=== PATIENT | male | born 1960 | race Two or more races ===

== ENCOUNTER → 2016-06-26 | Outpatient (CLI) | payer BC ==
[2016-06-26 09:21] LABS: BASOPHILS % 1.2 % (0.0-2.0); EOSINOPHILS % 1.1 % (0.0-5.0); HEMATOCRIT. 40.4 % (42.0-52.0); HEMOGLOBIN. 13.4 g/dL (14.0-18.0); LYMPHOCYTES % 13.6 % (20.0-50.0); MEAN CORPUSCULAR HEMOGLOBIN 27.2 pg (28.0-32.0); MEAN CORPUSCULAR HGB CONC 33.2 g/dL (31.0-37.0); MEAN PLATELET VOLUME 7.3 fl (7.4-10.4); MONOCYTES % 9.5 % (2.0-8.0); NEUTROPHILS % 74.6 % (40.0-76.0); PLATELET 290 x1000/uL (130-400); RED BLOOD CELL COUNT 4.92 mill/uL (4.7-6.1); RED CELL DISTRIBUTION WIDTH 13.9 % (11.6-14.6); WHITE BLOOD COUNT 12.2 x1000/uL (4.5-11.0)
[2016-06-26 09:44] LABS: ALANINE AMINOTRANSFERASE 11 IU/L (13-61); ALBUMIN 2.9 g/dL (3.4-5.0); ANION GAP 11; CALCIUM 8.4 mg/dL (8.5-10.1); CARBON DIOXIDE 26 mEq/L (21-32); CHLORIDE 105 mEq/L (98-107); HDL CHOLESTEROL 51 mg/dL (40-59); INDEX HEMOLYSI 1 (1-3); INDEX ICTERIC 1 (1-4); INDEX LIPEMIC 1 (1-3); LDL CHOLESTEROL 46 mg/dL (5-100); TRIGLYCERIDE 97 mg/dL (0-150); UREA NITROGEN BLOOD 10 mg/dL (7-21); eGFR > 60 mL/min (>60)
[2016-06-26 09:45] LABS: THYROID STIMULATING HORMONE 0.96 uIU/mL (0.36-3.74)
== END | disposition home or self-care (01) ==
LOC: LAB 08:57
PROVIDERS: ATTEND Internal Medicine
DX: Z00.00 Encounter for general adult medical examination without abnormal findings (principal); Z13.0 Encounter for screening for diseases of the blood and blood-forming organs and certain disorders involving the immune mechanism; Z13.220 Encounter for screening for lipoid disorders; Z13.29 Encounter for screening for other suspected endocrine disorder; E11.9 Type 2 diabetes mellitus without complications
CPT/HCPCS: 36415; 80053; 80061; 83036; 84443; 85025

== ENCOUNTER → 2016-07-07 | Outpatient (CLI) | payer BC | END | disposition home or self-care (01) | LOC: RAD 10:18 | PROVIDERS: ATTEND Podiatrist Foot & Ankle Surgery | DX: M86.8X7 Other osteomyelitis, ankle and foot (principal); M79.89 Other specified soft tissue disorders | CPT/HCPCS: 73630 ==

== ENCOUNTER → 2016-07-31 | Outpatient (CLI) | payer BC ==
[2016-07-31 08:18] LABS: BASOPHILS % 0.6 % (0.0-2.0); EOSINOPHILS % 2.4 % (0.0-5.0); HEMATOCRIT. 42.4 % (42.0-52.0); MEAN CORPUSCULAR HEMOGLOBIN 27.4 pg (28.0-32.0); MEAN CORPUSCULAR HGB CONC 33.1 g/dL (31.0-37.0); MEAN CORPUSCULAR VOLUME 82.7 fL (80.0-94.0); MONOCYTES % 11.9 % (2.0-8.0); NEUTROPHILS % 69.1 % (40.0-76.0); PLATELET 219 x1000/uL (130-400); RED BLOOD CELL COUNT 5.13 mill/uL (4.7-6.1); RED CELL DISTRIBUTION WIDTH 14.1 % (11.6-14.6); WHITE BLOOD COUNT 9.6 x1000/uL (4.5-11.0)
[2016-07-31 08:50] LABS: ALBUMIN 3.7 g/dL (3.4-5.0); BILIRUBIN DIRECT 0.1 mg/dL (0.0-0.2)
== END | disposition home or self-care (01) ==
LOC: LAB 08:01
PROVIDERS: ATTEND Podiatrist Foot & Ankle Surgery
DX: B35.1 Tinea unguium (principal); L60.3 Nail dystrophy
CPT/HCPCS: 36415; 80076; 85025

== ENCOUNTER → 2016-10-09 | Outpatient (CLI) | payer BC ==
[2016-10-09 08:52] LABS: BASOPHILS % 0.8 % (0.0-2.0); EOSINOPHILS % 6.2 % (0.0-5.0); HEMATOCRIT. 41.5 % (42.0-52.0); HEMOGLOBIN. 13.8 g/dL (14.0-18.0); LYMPHOCYTES % 21.1 % (20.0-50.0); MEAN CORPUSCULAR HEMOGLOBIN 27.2 pg (28.0-32.0); MEAN CORPUSCULAR VOLUME 81.5 fL (80.0-94.0); MEAN PLATELET VOLUME 7.7 fl (7.4-10.4); NEUTROPHILS % 60.9 % (40.0-76.0); PLATELET 188 x1000/uL (130-400); RED BLOOD CELL COUNT 5.09 mill/uL (4.7-6.1); RED CELL DISTRIBUTION WIDTH 14.3 % (11.6-14.6)
== END | disposition home or self-care (01) ==
LOC: LAB 08:26
PROVIDERS: ATTEND Podiatrist Foot & Ankle Surgery
DX: B35.1 Tinea unguium (principal); L60.3 Nail dystrophy
CPT/HCPCS: 36415; 80076; 85025

== ENCOUNTER → 2016-10-14 | Outpatient (CLI) | payer BC | END | disposition home or self-care (01) | LOC: PVL 10:03 | PROVIDERS: ATTEND Podiatrist Foot & Ankle Surgery | DX: E11.51 Type 2 diabetes mellitus with diabetic peripheral angiopathy without gangrene (principal) | CPT/HCPCS: 93923 ==

== ENCOUNTER 2016-11-08 08:51 | Emergency (ER) | payer BC ==
[~2016-11-08] VITALS: Ht 170.2 cm; Wt 174.0 kg
[2016-11-08 09:10] VITALS: BP 166/75
== END 2016-11-08 12:10 | disposition home or self-care (01) ==
LOC: ER 08:51
DX: H10.89 Other conjunctivitis (principal); H00.013 Hordeolum externum right eye, unspecified eyelid; E11.9 Type 2 diabetes mellitus without complications
CPT/HCPCS: 99283

== ENCOUNTER → 2017-01-23 | Outpatient (CLI) | payer BC ==
[2017-01-23 09:16] LABS: BASOPHILS % 1.2 % (0.0-2.0); EOSINOPHILS % 1.9 % (0.0-5.0); HEMATOCRIT. 40.4 % (42.0-52.0); HEMOGLOBIN. 13.7 g/dL (14.0-18.0); LYMPHOCYTES % 17.7 % (20.0-50.0); MEAN CORPUSCULAR HEMOGLOBIN 28.1 pg (28.0-32.0); MEAN CORPUSCULAR VOLUME 83.1 fL (80.0-94.0); MEAN PLATELET VOLUME 7.3 fl (7.4-10.4); MONOCYTES % 8.5 % (2.0-8.0); NEUTROPHILS % 70.7 % (40.0-76.0); PLATELET 242 x1000/uL (130-400); RED BLOOD CELL COUNT 4.86 mill/uL (4.7-6.1); RED CELL DISTRIBUTION WIDTH 14.1 % (11.6-14.6)
== END | disposition home or self-care (01) ==
LOC: LAB 08:49
PROVIDERS: ATTEND Podiatrist Foot & Ankle Surgery
DX: B35.1 Tinea unguium (principal)
CPT/HCPCS: 36415; 80076; 85025

== ENCOUNTER → 2017-03-02 | Outpatient (CLI) | payer BC ==
[2017-03-02 11:00] LABS: EOSINOPHILS % 3.3 % (0.0-5.0); HEMATOCRIT. 43.7 % (42.0-52.0); HEMOGLOBIN. 14.5 g/dL (14.0-18.0); LYMPHOCYTES % 17.1 % (20.0-50.0); MEAN CORPUSCULAR HEMOGLOBIN 27.6 pg (28.0-32.0); MEAN CORPUSCULAR VOLUME 83.4 fL (80.0-94.0); MEAN PLATELET VOLUME 7.4 fl (7.4-10.4); MONOCYTES % 9.5 % (2.0-8.0); NEUTROPHILS % 69.1 % (40.0-76.0); PLATELET 242 x1000/uL (130-400); RED BLOOD CELL COUNT 5.24 mill/uL (4.7-6.1); RED CELL DISTRIBUTION WIDTH 13.7 % (11.6-14.6)
== END | disposition home or self-care (01) ==
LOC: LAB 10:38
PROVIDERS: ATTEND Podiatrist Foot & Ankle Surgery
DX: B35.1 Tinea unguium (principal); L60.3 Nail dystrophy
CPT/HCPCS: 36415; 80076; 85025

== ENCOUNTER → 2018-04-06 | Outpatient (CLI) | payer BC ==
[2018-04-06 08:51] LABS: HEMATOCRIT. 45.2 % (42.0-52.0); HEMOGLOBIN. 14.8 g/dL (14.0-18.0); MEAN CORPUSCULAR HEMOGLOBIN 26.3 pg (28.0-32.0); MEAN CORPUSCULAR VOLUME 80.2 fL (80.0-94.0); MEAN PLATELET VOLUME 7.3 fl (7.4-10.4); PLATELET 212 x1000/uL (130-400); RED BLOOD CELL COUNT 5.63 mill/uL (4.7-6.1)
[2018-04-06 08:58] LABS: CHLORIDE 100 mEq/L (98-107)
[2018-04-06 09:05] LABS: LDL CHOLESTEROL 81 mg/dL (5-100)
[2018-04-06 09:07] LABS: HDL CHOLESTEROL 30 mg/dL (40-59); T4 FREE 1.62 ng/dL (0.76-1.46)
[2018-04-06 16:14] LABS: PLATELET ESTIMATE NORMAL
== END | disposition home or self-care (01) ==
LOC: LAB 08:18
PROVIDERS: ATTEND Internal Medicine
DX: Z13.220 Encounter for screening for lipoid disorders (principal); Z13.0 Encounter for screening for diseases of the blood and blood-forming organs and certain disorders involving the immune mechanism; E66.3 Overweight; E11.9 Type 2 diabetes mellitus without complications
CPT/HCPCS: 36415; 80061; 83036; 84439; 84443; 84481

== ENCOUNTER → 2019-03-14 | Outpatient (CLI) | payer BC ==
[2019-03-14 09:44] LABS: BASOPHILS % 0.9 % (0.0-2.0); EOSINOPHILS % 1.6 % (0.0-5.0); HEMATOCRIT. 42.5 % (42.0-52.0); HEMOGLOBIN. 14.3 g/dL (14.0-18.0); LYMPHOCYTES % 22.3 % (20.0-50.0); MEAN CORPUSCULAR HEMOGLOBIN 28.7 pg (28.0-32.0); MEAN CORPUSCULAR VOLUME 85.1 fL (80.0-94.0); MEAN PLATELET VOLUME 7.9 fl (7.4-10.4); MONOCYTES % 9.4 % (2.0-8.0); NEUTROPHILS % 65.8 % (40.0-76.0); PLATELET 178 x1000/uL (130-400); RED CELL DISTRIBUTION WIDTH 14.2 % (11.6-14.6)
[2019-03-14 09:59] LABS: CHLORIDE 104 mEq/L (98-107)
[2019-03-14 10:05] LABS: LDL CHOLESTEROL 59 mg/dL (5-100)
[2019-03-14 10:07] LABS: HDL CHOLESTEROL 44 mg/dL (40-59)
== END | disposition home or self-care (01) ==
LOC: LAB 09:03
PROVIDERS: ATTEND Internal Medicine
DX: Z13.220 Encounter for screening for lipoid disorders (principal); Z13.1 Encounter for screening for diabetes mellitus; Z13.0 Encounter for screening for diseases of the blood and blood-forming organs and certain disorders involving the immune mechanism; I10 Essential (primary) hypertension; E11.9 Type 2 diabetes mellitus without complications
CPT/HCPCS: 36415; 80053; 80061; 83036; 85025

== ENCOUNTER → 2019-05-10 | Outpatient (CLI) | payer BC | END | disposition home or self-care (01) | LOC: PVL 09:26 | PROVIDERS: ATTEND Internal Medicine | DX: I70.201 Unspecified atherosclerosis of native arteries of extremities, right leg (principal); I77.89 Other specified disorders of arteries and arterioles | CPT/HCPCS: 93923 ==

== ENCOUNTER → 2019-08-22 | Outpatient (CLI) | payer BC ==
[~2019-08-22] MED LIST: ACET12.53 PO; AMOX1TAB16 PO; ATOR20TA65 MT; CLOP75TA33 MT; GABA-529 PO; GLYB1TAB35 PO; HYDR-4001 PO; HYDR12.54 MT; SITA100T11 MT
== END | disposition home or self-care (01) ==
LOC: LAB 13:23
PROVIDERS: ATTEND Surgery Vascular Surgery
DX: Z01.818 Encounter for other preprocedural examination (principal); Z11.59 Encounter for screening for other viral diseases
CPT/HCPCS: U0003-CS

== ENCOUNTER 2019-08-23 08:37 | Inpatient (IN) | payer BC ==
[~2019-08-23] VITALS: Ht 170.2 cm; Wt 78.5 kg
[2019-08-23] VITALS (10 sets, daily range): BP systolic 103–159; BP diastolic 59–81
[2019-08-23 09:55] LABS: HEMOGLOBIN 13.4 g/dL (14.0-18.0); MEAN CORPUSCULAR HEMOGLOBIN 27.8 pg (28.0-32.0); MEAN CORPUSCULAR VOLUME 83.1 fL (80.0-94.0); PLATELET 227 x1000/uL (130-400); RED BLOOD CELL COUNT 4.81 mill/uL (4.7-6.1); RED CELL DISTRIBUTION WIDTH 14.5 % (11.6-14.6)
[2019-08-23] MEDS ORDERED: SITA100T11 MT (09:59)
[2019-08-23] MEDS ORDERED: AMOX1TAB16 PO (09:59)
[2019-08-23] MEDS ORDERED: GLYB1TAB35 PO (09:59)
[2019-08-23] MEDS ORDERED: ATOR20TA65 MT (09:59)
[2019-08-23] MEDS ORDERED: HYDR12.54 MT (09:59)
[2019-08-23] MEDS ORDERED: ACET12.53 PO (09:59)
[2019-08-23 10:02] LABS: CHLORIDE 104 mEq/L (98-107)
[2019-08-23 10:04] LABS: PARTIAL THROMBOPLASTIN TIME 27.1 sec (23.4-31.0); PROTHROMBIN TIME 10.7 sec (9.6-11.0)
[2019-08-23] MEDS ORDERED: FENTANYL CITRATE/PF 50MCG/ML 2ML VIAL ONE (10:13)
[2019-08-23] MEDS ORDERED: MIDAZOLAM HCL 2 MG/2 ML VIAL ONE (10:13)
[2019-08-23] MEDS ORDERED: LIDOCAINE HCL 1% 20ML VIAL (Pyxis) INJ ONE (10:14)
[2019-08-23] MEDS ORDERED: IODIXANOL 320MG/ML 100 ML BOTTLE IV ONE (10:14)
[2019-08-23] MEDS ORDERED: IOHEXOL-300 100 ML BOTTLE ONE (10:32)
[2019-08-23] MEDS ORDERED: HEPARIN SODIUM 1,000 UNIT/1ML VIAL IV ONE (13:06)
[2019-08-23] MEDS ORDERED: HYDROCODONE/ACETAMINOPHEN 5/325MG TABLET PO PRN (19:30)
[2019-08-23] MEDS ORDERED: DEXTROSE 50% WATER 50ML SYRINGE IV PRN (19:30)
[2019-08-23] MEDS: BLOOD SUGAR DIAGNOSTIC STRIP TEST SCH (20:31)
[2019-08-23] MEDS: INSULIN LISPRO 100 UNITS/ML SUBCUT SCH (20:47)
[2019-08-24 00:26] VITALS: BP 119/60
[2019-08-24 01:54] VITALS: BP 110/48
[2019-08-24 03:53] VITALS: BP 120/63
[2019-08-24] MEDS: BLOOD SUGAR DIAGNOSTIC STRIP TEST SCH (05:43)
[2019-08-24 05:54] VITALS: BP 135/64
[2019-08-24] MEDS: INSULIN LISPRO 100 UNITS/ML SUBCUT SCH (07:20)
[2019-08-24 08:00] VITALS: BP 135/47
[2019-08-24 09:36] VITALS: BP 135/95
== END 2019-08-24 10:47 | disposition home or self-care (01) | DRG 271 ==
LOC: CCL 08:37 → 3WST 08:38
PROVIDERS: ADMIT Surgery Vascular Surgery; ATTEND Surgery Vascular Surgery
PROC: 047K3ZZ Dilation of Right Femoral Artery, Percutaneous Approach (ICD-10-PCS; principal; 2019-08-23)
PROC: 04CM3ZZ Extirpation of Matter from Right Popliteal Artery, Percutaneous Approach (ICD-10-PCS; 2019-08-23)
PROC: B41G1ZZ Fluoroscopy of Left Lower Extremity Arteries using Low Osmolar Contrast (ICD-10-PCS; 2019-08-23)
PROC: B41F1ZZ Fluoroscopy of Right Lower Extremity Arteries using Low Osmolar Contrast (ICD-10-PCS; 2019-08-23)
DX: E11.51 Type 2 diabetes mellitus with diabetic peripheral angiopathy without gangrene (principal); L97.419 Non-pressure chronic ulcer of right heel and midfoot with unspecified severity; E11.40 Type 2 diabetes mellitus with diabetic neuropathy, unspecified; I70.209 Unspecified atherosclerosis of native arteries of extremities, unspecified extremity; I10 Essential (primary) hypertension; I77.1 Stricture of artery; Z79.899 Other long term (current) drug therapy
CPT/HCPCS: 36415; 37225; 75710; 80048; 82962; 85027; 93005; C1725; C1760; C1769; C1885; C1887; C1894; J1644; J1815; J2250; J3010; J3490; Q9967

== ENCOUNTER → 2019-09-09 | Outpatient (CLI) | payer BC ==
[~2019-09-09] MED LIST changes: -CLOP75TA33 MT; -GABA-529 PO; -HYDR-4001 PO
== END | disposition home or self-care (01) ==
LOC: LAB 08:48
PROVIDERS: ATTEND Podiatrist Foot & Ankle Surgery
DX: Z01.818 Encounter for other preprocedural examination (principal); Z11.59 Encounter for screening for other viral diseases
CPT/HCPCS: 87635

== ENCOUNTER → 2019-09-13 | Outpatient (CLI) | payer BC | END | disposition home or self-care (01) | LOC: PVL 09:49 | PROVIDERS: ATTEND Podiatrist Foot & Ankle Surgery | DX: I70.201 Unspecified atherosclerosis of native arteries of extremities, right leg (principal); I96 Gangrene, not elsewhere classified; L97.419 Non-pressure chronic ulcer of right heel and midfoot with unspecified severity | CPT/HCPCS: 93923 ==

== ENCOUNTER → 2019-09-26 | Outpatient (CLI) | payer BC ==
[~2019-09-26] MED LIST changes: +GABA-529 PO; +HYDR-4001 PO
== END | disposition home or self-care (01) ==
LOC: LAB 14:13
PROVIDERS: ATTEND Surgery Vascular Surgery
DX: Z03.818 Encounter for observation for suspected exposure to other biological agents ruled out (principal)
CPT/HCPCS: C9803; U0003

== ENCOUNTER 2019-09-28 08:30 | Inpatient (IN) | payer BC ==
[~2019-09-28] VITALS: Ht 170.2 cm; Wt 80.7 kg
[2019-09-28] VITALS (8 sets, daily range): BP systolic 111–147; BP diastolic 50–74
[~2019-09-28 08:30] MED LIST changes: -GABA-529 PO; -HYDR-4001 PO
[2019-09-28 09:18] LABS: HEMATOCRIT 39.8 % (42.0-52.0); HEMOGLOBIN 13.5 g/dL (14.0-18.0); MEAN CORPUSCULAR HEMOGLOBIN 27.5 pg (28.0-32.0); MEAN CORPUSCULAR VOLUME 80.8 fL (80.0-94.0); PLATELET 286 x1000/uL (130-400); RED BLOOD CELL COUNT 4.92 mill/uL (4.7-6.1); RED CELL DISTRIBUTION WIDTH 13.7 % (11.6-14.6)
[2019-09-28 09:28] LABS: INR 1.1; PARTIAL THROMBOPLASTIN TIME 30.5 sec (23.4-31.0); PROTHROMBIN TIME 11.1 sec (9.6-11.0)
[2019-09-28] MEDS ORDERED: LIDOCAINE HCL 1% 20ML VIAL (Pyxis) INJ ONE (09:29)
[2019-09-28] MEDS ORDERED: IODIXANOL 320MG/ML 100 ML BOTTLE IV ONE ×2 (09:29→10:54)
[2019-09-28] MEDS ORDERED: FENTANYL CITRATE/PF 50MCG/ML 2ML VIAL ONE (09:29)
[2019-09-28] MEDS ORDERED: MIDAZOLAM HCL 2 MG/2 ML VIAL ONE ×2 (09:29→11:08)
[2019-09-28 09:38] LABS: CHLORIDE 106 mEq/L (98-107)
[2019-09-28] MEDS ORDERED: HYDR-4001 PO (09:43)
[2019-09-28] MEDS ORDERED: GABA-529 PO (09:44)
[2019-09-28] MEDS ORDERED: HEPARIN SODIUM 1,000 UNIT/1ML VIAL IV ONE (11:16)
[2019-09-28] MEDS ORDERED: CLOPIDOGREL 75MG TABLET PO NR (11:30)
[2019-09-28] MEDS ORDERED: HYDROCODONE/ACETAMINOPHEN 5/325MG TABLET PO PRN (12:00)
[2019-09-28] MEDS ORDERED: CLOPIDOGREL 75MG TABLET PO SCH (12:00)
[2019-09-28] MEDS ORDERED: DEXTROSE 50% WATER 50ML SYRINGE IV PRN (12:15)
[2019-09-28] MEDS ORDERED: HYDROCODONE/ACETAMINOPHEN 5/325MG TABLET PO SCH (12:15)
[2019-09-28] MEDS: INSULIN LISPRO 100 UNITS/ML SUBCUT SCH ×3 (12:20→21:24)
[2019-09-28] MEDS: BLOOD SUGAR DIAGNOSTIC STRIP TEST SCH ×2 (16:50→21:18)
[2019-09-28] MEDS ORDERED: ATORVASTATIN CALCIUM 20MG TABLET PO SCH (21:00)
[2019-09-29 01:53] VITALS: BP 130/61
[2019-09-29 03:53] VITALS: BP 120/78
[2019-09-29 05:53] VITALS: BP 121/56
[2019-09-29] MEDS: BLOOD SUGAR DIAGNOSTIC STRIP TEST SCH ×2 (06:16→12:19)
[2019-09-29] MEDS: INSULIN LISPRO 100 UNITS/ML SUBCUT SCH ×2 (07:20→12:19)
[2019-09-29 08:00] VITALS: BP 129/69
[2019-09-29] MEDS ORDERED: GABAPENTIN 100MG CAPSULE PO SCH (09:00)
[2019-09-29] MEDS ORDERED: CLOPIDOGREL 75MG TABLET PO SCH (09:00)
[2019-09-29 09:23] LABS: HEMATOCRIT 37.1 % (42.0-52.0); HEMOGLOBIN 12.5 g/dL (14.0-18.0); MEAN CORPUSCULAR HEMOGLOBIN 27.5 pg (28.0-32.0); MEAN CORPUSCULAR VOLUME 81.6 fL (80.0-94.0); PLATELET 231 x1000/uL (130-400); RED BLOOD CELL COUNT 4.55 mill/uL (4.7-6.1); RED CELL DISTRIBUTION WIDTH 13.7 % (11.6-14.6)
[2019-09-29 09:32] LABS: CHLORIDE 104 mEq/L (98-107)
[2019-09-29 10:00] VITALS: BP 117/59
[2019-09-29 14:00] VITALS: BP 131/66
== END 2019-09-29 14:09 | disposition home or self-care (01) | DRG 271 ==
LOC: CCL 08:30 → 3WST 08:31
PROVIDERS: ADMIT Internal Medicine; ATTEND Internal Medicine
PROC: 04CM3ZZ Extirpation of Matter from Right Popliteal Artery, Percutaneous Approach (ICD-10-PCS; principal; 2019-09-28)
PROC: 04CP3ZZ Extirpation of Matter from Right Anterior Tibial Artery, Percutaneous Approach (ICD-10-PCS; 2019-09-28)
PROC: 047M3ZZ Dilation of Right Popliteal Artery, Percutaneous Approach (ICD-10-PCS; 2019-09-28)
DX: E11.51 Type 2 diabetes mellitus with diabetic peripheral angiopathy without gangrene (principal); L97.419 Non-pressure chronic ulcer of right heel and midfoot with unspecified severity; E11.621 Type 2 diabetes mellitus with foot ulcer; F64.9 Gender identity disorder, unspecified; I10 Essential (primary) hypertension; L97.519 Non-pressure chronic ulcer of other part of right foot with unspecified severity; Z79.899 Other long term (current) drug therapy; E11.40 Type 2 diabetes mellitus with diabetic neuropathy, unspecified
CPT/HCPCS: 36415; 37225; 75710; 80048; 82962; 83036; 85027; 85347; 93005; C1725; C1760; C1769; C1885; C1887; C1893; C1894; J1644; J1815; J2250; J3010; J3490; Q9967

== ENCOUNTER 2019-11-01 06:09 | Inpatient (IN) | payer BC ==
[~2019-11-01] VITALS: Ht 170.2 cm; Wt 80.7 kg
[~2019-11-01 06:09] MED LIST changes: -ACET12.53 PO; +GABA-529 PO; +HYDR-4001 PO; -HYDR12.54 MT
[2019-11-01] MEDS ORDERED: ACETAMINOPHEN 650MG/20.3ML UDC PO ONE (07:30)
[2019-11-01] MEDS ORDERED: KETOROLAC 15MG/ML VIAL IV SCH (08:30)
[2019-11-01 08:46] LABS: BASOPHILS % 1.2 % (0.0-2.0); EOSINOPHILS % 4.6 % (0.0-5.0); HEMATOCRIT. 35.4 % (42.0-52.0); HEMOGLOBIN. 11.7 g/dL (14.0-18.0); LYMPHOCYTES % 18.7 % (20.0-50.0); MEAN CORPUSCULAR HEMOGLOBIN 26.1 pg (28.0-32.0); MEAN CORPUSCULAR VOLUME 79.2 fL (80.0-94.0); MEAN PLATELET VOLUME 6.9 fl (7.4-10.4); MONOCYTES % 9.9 % (2.0-8.0); NEUTROPHILS % 65.6 % (40.0-76.0); PLATELET 359 x1000/uL (130-400); RED BLOOD CELL COUNT 4.47 mill/uL (4.7-6.1); RED CELL DISTRIBUTION WIDTH 13.8 % (11.6-14.6)
[2019-11-01 08:48] LABS: CHLORIDE 105 mEq/L (98-107)
[2019-11-01] MEDS ORDERED: SODIUM CHLORIDE 0.9% 1,000 ML IV SCH (09:00)
[2019-11-01] MEDS ORDERED: CLONIDINE 0.1MG TABLET PO PRN (10:30)
[2019-11-01] MEDS ORDERED: ACETAMINOPHEN 325MG TABLET PO PRN (10:30)
[2019-11-01] MEDS ORDERED: ONDANSETRON HCL 4MG/2ML INJ IV PRN (10:30)
[2019-11-01] MEDS ORDERED: MORPHINE SULFATE 2 MG/ML CPJ (NOT FOR IM USE) IV PRN (10:30)
[2019-11-01] MEDS ORDERED: DIPHENHYDRAMINE 50MG/ML VIAL IV PRN (10:30)
[2019-11-01 10:42] LABS: PHOSPHORUS 2.8 mg/dL (2.5-4.9)
[2019-11-01] MEDS ORDERED: VANCOMYCIN 1500MG in DEXTROSE 5% WATER 250ML IV SCH (11:00)
[2019-11-01 15:00] VITALS: BP 138/53
[2019-11-01 16:00] VITALS: BP 138/53
[2019-11-01] MEDS ORDERED: CLOP75TA33 MT (19:00)
[2019-11-01] MEDS ORDERED: DEXTROSE 50% WATER 50ML SYRINGE IV PRN (19:30)
[2019-11-01 20:00] VITALS: BP 113/46
[2019-11-01] MEDS: BLOOD SUGAR DIAGNOSTIC STRIP TEST SCH (21:00)
[2019-11-01] MEDS: INSULIN LISPRO 100 UNITS/ML SUBCUT SCH (22:57)
[2019-11-01] MEDS: VANCOMYCIN 1500MG in DEXTROSE 5% WATER 250ML IV SCH (22:57)
[2019-11-02] VITALS: BP 141/45
[2019-11-02 04:23] VITALS: BP 113/45
[2019-11-02] MEDS: BLOOD SUGAR DIAGNOSTIC STRIP TEST SCH ×4 (05:54→20:40)
[2019-11-02] MEDS: INSULIN LISPRO 100 UNITS/ML SUBCUT SCH ×4 (06:18→20:40)
[2019-11-02 08:00] VITALS: BP 117/59
[2019-11-02 08:41] LABS: BASOPHILS % 1.4 % (0.0-2.0); EOSINOPHILS % 6.8 % (0.0-5.0); HEMATOCRIT. 34.6 % (42.0-52.0); HEMOGLOBIN. 11.2 g/dL (14.0-18.0); MEAN CORPUSCULAR HEMOGLOBIN 25.8 pg (28.0-32.0); MEAN CORPUSCULAR VOLUME 79.3 fL (80.0-94.0); MONOCYTES % 11.5 % (2.0-8.0); NEUTROPHILS % 53.3 % (40.0-76.0); PLATELET 343 x1000/uL (130-400); RED BLOOD CELL COUNT 4.36 mill/uL (4.7-6.1); RED CELL DISTRIBUTION WIDTH 14.1 % (11.6-14.6)
[2019-11-02 08:52] LABS: CHLORIDE 107 mEq/L (98-107)
[2019-11-02 08:59] LABS: LDL CHOLESTEROL 61 mg/dL (5-100)
[2019-11-02 09:00] LABS: HDL CHOLESTEROL 39 mg/dL (40-59)
[2019-11-02] MEDS: VANCOMYCIN 1500MG in DEXTROSE 5% WATER 250ML IV SCH ×3 (09:00→20:40)
[2019-11-02] MEDS ORDERED: LIDOCAINE HCL 1% 20ML VIAL (Pyxis) INJ ONE (10:29)
[2019-11-02] MEDS ORDERED: MIDAZOLAM HCL 2 MG/2 ML VIAL ONE (10:29)
[2019-11-02] MEDS ORDERED: FENTANYL CITRATE/PF 50MCG/ML 2ML VIAL ONE (10:29)
[2019-11-02] MEDS ORDERED: IODIXANOL 320MG/ML 100 ML BOTTLE IV ONE (10:30)
[2019-11-02 12:00] VITALS: BP 116/47
[2019-11-02] MEDS ORDERED: IOHEXOL-300 100 ML BOTTLE ONE ×2 (12:16→12:18)
[2019-11-02] MEDS: CLOPIDOGREL 75MG TABLET PO SCH (14:05)
[2019-11-02 16:00] VITALS: BP 111/48
[2019-11-02 20:00] VITALS: BP 115/49
[2019-11-03] VITALS: BP 122/64
[2019-11-03 04:00] VITALS: BP 122/59
[2019-11-03] MEDS: BLOOD SUGAR DIAGNOSTIC STRIP TEST SCH ×2 (06:10→11:39)
[2019-11-03] MEDS: INSULIN LISPRO 100 UNITS/ML SUBCUT SCH ×2 (06:30→11:42)
[2019-11-03 07:01] LABS: CHLORIDE 105 mEq/L (98-107)
[2019-11-03 07:30] LABS: BASOPHILS % 1.2 % (0.0-2.0); EOSINOPHILS % 5.6 % (0.0-5.0); HEMATOCRIT. 33.9 % (42.0-52.0); HEMOGLOBIN. 11.2 g/dL (14.0-18.0); LYMPHOCYTES % 23.7 % (20.0-50.0); MEAN CORPUSCULAR HEMOGLOBIN 25.9 pg (28.0-32.0); MEAN CORPUSCULAR VOLUME 78.7 fL (80.0-94.0); MEAN PLATELET VOLUME 7.1 fl (7.4-10.4); MONOCYTES % 14.1 % (2.0-8.0); NEUTROPHILS % 55.4 % (40.0-76.0); PLATELET 309 x1000/uL (130-400); RED BLOOD CELL COUNT 4.31 mill/uL (4.7-6.1); RED CELL DISTRIBUTION WIDTH 14.1 % (11.6-14.6)
[2019-11-03 08:00] VITALS: BP 123/66
[2019-11-03] MEDS: VANCOMYCIN 1500MG in DEXTROSE 5% WATER 250ML IV SCH (09:25)
[2019-11-03] MEDS: CLOPIDOGREL 75MG TABLET PO SCH (09:25)
[2019-11-03 12:00] VITALS: BP 128/54
[2019-11-03 16:00] VITALS: BP 111/57
[2019-11-03 16:57] VITALS: BP 111/51
== END 2019-11-03 17:39 | disposition home or self-care (01) | DRG 253 ==
LOC: ER 06:09 → 5WST 10:12 → ENRESERV 13:25 → 5WST 15:18
PROVIDERS: ADMIT Internal Medicine; ATTEND Internal Medicine
PROC: 04HM3DZ Insertion of Intraluminal Device into Right Popliteal Artery, Percutaneous Approach (ICD-10-PCS; principal; 2019-11-02)
PROC: B41F1ZZ Fluoroscopy of Right Lower Extremity Arteries using Low Osmolar Contrast (ICD-10-PCS; 2019-11-02)
PROC: 047P3ZZ Dilation of Right Anterior Tibial Artery, Percutaneous Approach (ICD-10-PCS; 2019-11-02)
DX: E11.52 Type 2 diabetes mellitus with diabetic peripheral angiopathy with gangrene (principal); M86.8X7 Other osteomyelitis, ankle and foot; I70.261 Atherosclerosis of native arteries of extremities with gangrene, right leg; E11.69 Type 2 diabetes mellitus with other specified complication; D50.9 Iron deficiency anemia, unspecified; E78.5 Hyperlipidemia, unspecified; Z20.828 Contact with and (suspected) exposure to other viral communicable diseases; F64.9 Gender identity disorder, unspecified; Z79.2 Long term (current) use of antibiotics; Z79.899 Other long term (current) drug therapy
CPT/HCPCS: 36415; 73630; 80048; 80053; 80061; 80202; 82962; 83036; 83735; 84100; 84443; 85025; 85347; 87635; 96374; 97162; 97165; 99291; J1644; J1815; J1885; J2250; J3010; J3370; J3490; J7060; Q9967

== ENCOUNTER → 2019-12-14 | Outpatient (CLI) | payer BC ==
[~2019-12-14] MED LIST changes: +CLOP75TA33 MT
[2019-12-14 08:35] LABS: BASOPHILS % 0.7 % (0.0-2.0); EOSINOPHILS % 1.1 % (0.0-5.0); HEMATOCRIT. 40.3 % (42.0-52.0); HEMOGLOBIN. 13.3 g/dL (14.0-18.0); LYMPHOCYTES % 15.5 % (20.0-50.0); MEAN CORPUSCULAR HEMOGLOBIN 26.5 pg (28.0-32.0); MEAN CORPUSCULAR VOLUME 80.4 fL (80.0-94.0); NEUTROPHILS % 73.7 % (40.0-76.0); PLATELET 249 x1000/uL (130-400); RED CELL DISTRIBUTION WIDTH 17.7 % (11.6-14.6)
[2019-12-14 08:43] LABS: CLARITY URINE TURBID (CLEAR); COLOR URINE YELLOW (YELLOW); KETONES URINE TRACE (NEGATIVE); LEUKOCYTE ESTERASE URINE 3+ (NEGATIVE); NITRITE URINE POSITIVE (NEGATIVE); OCCULT BLOOD URINE TRACE (NEGATIVE); PROTEIN URINE NEGATIVE (NEGATIVE); UROBILINOGEN URINE 0.2 E.U./dL (0.2-1.0)
[2019-12-14 08:45] LABS: PARTIAL THROMBOPLASTIN TIME 26.8 sec (23.4-31.0); PROTHROMBIN TIME 10.5 sec (9.6-11.0)
[2019-12-14 08:50] LABS: CHLORIDE 105 mEq/L (98-107)
== END | disposition home or self-care (01) ==
LOC: LAB 08:08
PROVIDERS: ATTEND Internal Medicine
DX: Z01.812 Encounter for preprocedural laboratory examination (principal); N39.0 Urinary tract infection, site not specified; Z13.0 Encounter for screening for diseases of the blood and blood-forming organs and certain disorders involving the immune mechanism; Z13.1 Encounter for screening for diabetes mellitus
CPT/HCPCS: 36415; 80048; 81003; 83036; 85025; 87077; 87186

== ENCOUNTER → 2019-12-16 | Outpatient (CLI) | payer BC | END | disposition home or self-care (01) | LOC: LAB 08:51 | PROVIDERS: ATTEND Podiatrist Foot & Ankle Surgery | DX: Z01.812 Encounter for preprocedural laboratory examination (principal); Z20.828 Contact with and (suspected) exposure to other viral communicable diseases | CPT/HCPCS: C9803; U0003 ==

== ENCOUNTER 2020-01-09 12:31 | Inpatient (IN) | payer BC, MEDICAID ==
[~2020-01-09] VITALS: Ht 170.2 cm; Wt 95.7 kg
[2020-01-09] MEDS ORDERED: PIPERACILLIN/TAZ 3.375G PREMIX 50 ML IV ONE (13:00)
[2020-01-09] MEDS ORDERED: VANCOMYCIN 1 G PREMIX 200 ML IV ONE (13:00)
[2020-01-09 13:29] LABS: HEMOGLOBIN. 11.1 g/dL (14.0-18.0); MEAN CORPUSCULAR HEMOGLOBIN 26.2 pg (28.0-32.0); MEAN CORPUSCULAR VOLUME 80.1 fL (80.0-94.0); MEAN PLATELET VOLUME 7.5 fl (7.4-10.4); PLATELET 443 x1000/uL (130-400); RED BLOOD CELL COUNT 4.24 mill/uL (4.7-6.1); RED CELL DISTRIBUTION WIDTH 16.9 % (11.6-14.6)
[2020-01-09 13:36] LABS: CHLORIDE 97 mEq/L (98-107)
[2020-01-09 13:38] LABS: PROTHROMBIN TIME 10.9 sec (9.6-11.0)
[2020-01-09 14:04] LABS: PLATELET ESTIMATE INCREASED
[2020-01-09] MEDS ORDERED: ACETAMINOPHEN 325MG TABLET PO PRN (14:30)
[2020-01-09] MEDS ORDERED: DIPHENHYDRAMINE 50MG/ML VIAL IV PRN (14:30)
[2020-01-09] MEDS ORDERED: PIPERACILLIN/TAZ 3.375G PREMIX 50 ML IV SCH (14:30)
[2020-01-09] MEDS ORDERED: IPRATROPIUM/ALBUTEROL 0.5-3(2.5)MG/3ML NEB HHN PRN (14:30)
[2020-01-09] MEDS ORDERED: CLONIDINE 0.1MG TABLET PO PRN (14:30)
[2020-01-09] MEDS ORDERED: IOHEXOL-350 100 ML BOTTLE ONE (14:52)
[2020-01-09 16:30] VITALS: BP 149/80
[2020-01-09] MEDS ORDERED: POTASSIUM CHLORIDE 20MEQ/PACKET PO NR (17:30)
[2020-01-09] MEDS: MORPHINE SULFATE 2 MG/ML CPJ (NOT FOR IM USE) IV PRN (17:41)
[2020-01-09] MEDS ORDERED: PIPERACILLIN/TAZOBACTAM 3.375 G in DEXT 5% WATER 100 ML IV SCH (18:00)
[2020-01-09 18:26] LABS: PHOSPHORUS 2.8 mg/dL (2.5-4.9)
[2020-01-09] MEDS ORDERED: INFLUENZA VACCINE 05/PF 0.5 ML VIAL IM ONE (19:45)
[2020-01-09] MEDS ORDERED: PNEUMOCOCCAL 23-VAL P-SAC VAC 0.5 ML IM ONE (19:45)
[2020-01-09 20:00] VITALS: BP 120/53
[2020-01-09] MEDS ORDERED: VANCOMYCIN 1250MG in DEXTROSE 5% WATER 250ML IV SCH ×2 (20:00→22:00)
[2020-01-09] MEDS: ATORVASTATIN CALCIUM 40MG TABLET PO SCH (21:44)
[2020-01-09] MEDS: PIPERACILLIN/TAZOBACTAM 3.375 G in DEXT 5% WATER 100 ML IV SCH (21:44)
[2020-01-09] MEDS: HYDROCODONE/ACETAMINOPHEN 5/325MG TABLET PO PRN (22:37)
[2020-01-10] VITALS: BP 126/82
[2020-01-10] MEDS: PIPERACILLIN/TAZOBACTAM 3.375 G in DEXT 5% WATER 100 ML IV SCH ×4 (03:07→21:40)
[2020-01-10 04:00] VITALS: BP 120/64
[2020-01-10] MEDS: HYDROCODONE/ACETAMINOPHEN 5/325MG TABLET PO PRN ×3 (04:18→22:02)
[2020-01-10 06:00] LABS: BASOPHILS % 0.5 % (0.0-2.0); EOSINOPHILS % 1.2 % (0.0-5.0); HEMATOCRIT. 32.2 % (42.0-52.0); HEMOGLOBIN. 10.4 g/dL (14.0-18.0); LYMPHOCYTES % 8.7 % (20.0-50.0); MEAN CORPUSCULAR HEMOGLOBIN 25.8 pg (28.0-32.0); MEAN CORPUSCULAR VOLUME 79.6 fL (80.0-94.0); MEAN PLATELET VOLUME 7.5 fl (7.4-10.4); MONOCYTES % 8.6 % (2.0-8.0); PLATELET 438 x1000/uL (130-400); RED BLOOD CELL COUNT 4.04 mill/uL (4.7-6.1); RED CELL DISTRIBUTION WIDTH 16.8 % (11.6-14.6)
[2020-01-10 06:25] LABS: CHLORIDE 95 mEq/L (98-107)
[2020-01-10 06:29] LABS: HDL CHOLESTEROL 30 mg/dL (40-59); LDL CHOLESTEROL 69 mg/dL (5-100)
[2020-01-10] MEDS: INSULIN LISPRO 100 UNITS/ML SUBCUT SCH ×4 (07:15→22:10)
[2020-01-10] MEDS: BLOOD SUGAR DIAGNOSTIC STRIP TEST SCH ×4 (07:20→21:00)
[2020-01-10 08:00] VITALS: BP 129/70
[2020-01-10] MEDS: VANCOMYCIN 1 G PREMIX 200 ML IV SCH ×2 (11:47→18:55)
[2020-01-10 12:00] VITALS: BP 118/62
[2020-01-10] MEDS ORDERED: HEPARIN SODIUM 1,000 UNIT/1ML VIAL IV ONE (13:00)
[2020-01-10] MEDS ORDERED: MIDAZOLAM HCL 2 MG/2 ML VIAL ONE (13:33)
[2020-01-10] MEDS ORDERED: IODIXANOL 320MG/ML 100 ML BOTTLE IV ONE (13:34)
[2020-01-10] MEDS ORDERED: FENTANYL CITRATE/PF 50MCG/ML 2ML VIAL ONE (13:34)
[2020-01-10] MEDS ORDERED: LIDOCAINE HCL 1% 20ML VIAL (Pyxis) INJ ONE (13:34)
[2020-01-10 16:00] VITALS: BP 116/71
[2020-01-10 20:00] VITALS: BP 102/47
[2020-01-10] MEDS: ATORVASTATIN CALCIUM 40MG TABLET PO SCH (21:40)
[2020-01-10] MEDS ORDERED: INSULIN GLARGINE UD 100 UNITS/ML SYR SUBCUT SCH (22:00)
[2020-01-11] VITALS: BP 135/70
[2020-01-11] MEDS: VANCOMYCIN 1 G PREMIX 200 ML IV SCH ×2 (02:34→11:16)
[2020-01-11] MEDS: PIPERACILLIN/TAZOBACTAM 3.375 G in DEXT 5% WATER 100 ML IV SCH ×4 (02:34→20:12)
[2020-01-11 04:00] VITALS: BP 110/63
[2020-01-11] MEDS: INSULIN LISPRO 100 UNITS/ML SUBCUT SCH ×4 (06:56→21:19)
[2020-01-11] MEDS: BLOOD SUGAR DIAGNOSTIC STRIP TEST SCH ×4 (07:02→21:14)
[2020-01-11 07:28] LABS: BASOPHILS % 0.9 % (0.0-2.0); EOSINOPHILS % 0.6 % (0.0-5.0); HEMATOCRIT. 30.8 % (42.0-52.0); HEMOGLOBIN. 10.2 g/dL (14.0-18.0); LYMPHOCYTES % 7.6 % (20.0-50.0); MEAN CORPUSCULAR HEMOGLOBIN 26.1 pg (28.0-32.0); MEAN CORPUSCULAR VOLUME 78.7 fL (80.0-94.0); MEAN PLATELET VOLUME 7.5 fl (7.4-10.4); MONOCYTES % 7.7 % (2.0-8.0); NEUTROPHILS % 83.2 % (40.0-76.0); PLATELET 390 x1000/uL (130-400); RED BLOOD CELL COUNT 3.91 mill/uL (4.7-6.1); RED CELL DISTRIBUTION WIDTH 16.7 % (11.6-14.6)
[2020-01-11 07:35] LABS: CHLORIDE 95 mEq/L (98-107)
[2020-01-11 08:00] VITALS: BP 105/60
[2020-01-11] MEDS: HYDROCODONE/ACETAMINOPHEN 5/325MG TABLET PO PRN ×2 (09:17→21:20)
[2020-01-11] MEDS ORDERED: RIVAROXABAN 20 MG TABLET PO SCH (10:30)
[2020-01-11 12:00] VITALS: BP 122/62
[2020-01-11 16:00] VITALS: BP 110/54
[2020-01-11 20:00] VITALS: BP 113/56
[2020-01-11] MEDS: VANCOMYCIN 1500MG in DEXTROSE 5% WATER 250ML IV SCH (21:18)
[2020-01-11] MEDS: ATORVASTATIN CALCIUM 40MG TABLET PO SCH (21:19)
[2020-01-11] MEDS: INSULIN GLARGINE UD 100 UNITS/ML SYR SUBCUT SCH (22:07)
[2020-01-12] VITALS: BP 94/51
[2020-01-12] MEDS: MORPHINE SULFATE 2 MG/ML CPJ (NOT FOR IM USE) IV PRN ×2 (01:13→08:54)
[2020-01-12] MEDS: PIPERACILLIN/TAZOBACTAM 3.375 G in DEXT 5% WATER 100 ML IV SCH ×4 (02:15→20:35)
[2020-01-12 04:00] VITALS: BP 112/58
[2020-01-12] MEDS: BLOOD SUGAR DIAGNOSTIC STRIP TEST SCH ×4 (06:18→21:35)
[2020-01-12] MEDS: INSULIN LISPRO 100 UNITS/ML SUBCUT SCH ×4 (06:35→21:41)
[2020-01-12 08:00] VITALS: BP 102/62
[2020-01-12] MEDS: VANCOMYCIN 1500MG in DEXTROSE 5% WATER 250ML IV SCH ×2 (11:03→21:40)
[2020-01-12 12:00] VITALS: BP 101/59
[2020-01-12] MEDS ORDERED: LIDOCAINE HCL 1% 20ML VIAL (Pyxis) INJ ONE (13:41)
[2020-01-12] MEDS ORDERED: BUPIVACAINE HCL/PF 0.5% (5MG/ML) 10ML ONE (13:42)
[2020-01-12] MEDS ORDERED: BACITRACIN 50,000 UNITS/VIAL ONE (13:42)
[2020-01-12] MEDS ORDERED: MIDAZOLAM HCL 2 MG/2 ML VIAL ONE (16:07)
[2020-01-12] MEDS ORDERED: FENTANYL CITRATE/PF 50MCG/ML 2ML VIAL ONE (16:07)
[2020-01-12] MEDS ORDERED: DIPHENHYDRAMINE 50MG/ML VIAL ONE (16:07)
[2020-01-12] MEDS ORDERED: PROPOFOL 200MG/20ML VIAL IV ONE (16:07)
[2020-01-12 18:08] VITALS: BP 146/74
[2020-01-12 20:00] VITALS: BP 116/50
[2020-01-12] MEDS: ATORVASTATIN CALCIUM 40MG TABLET PO SCH (21:40)
[2020-01-12] MEDS: INSULIN GLARGINE UD 100 UNITS/ML SYR SUBCUT SCH (21:41)
[2020-01-13] VITALS: BP 116/54
[2020-01-13] MEDS: PIPERACILLIN/TAZOBACTAM 3.375 G in DEXT 5% WATER 100 ML IV SCH ×4 (01:56→20:22)
[2020-01-13] MEDS: MORPHINE SULFATE 2 MG/ML CPJ (NOT FOR IM USE) IV PRN (03:40)
[2020-01-13 04:00] VITALS: BP 105/47
[2020-01-13] MEDS: BLOOD SUGAR DIAGNOSTIC STRIP TEST SCH ×4 (06:25→20:24)
[2020-01-13] MEDS: INSULIN LISPRO 100 UNITS/ML SUBCUT SCH ×5 (06:30→20:23)
[2020-01-13 06:44] LABS: BASOPHILS % 0.6 % (0.0-2.0); EOSINOPHILS % 2.7 % (0.0-5.0); HEMATOCRIT. 29.6 % (42.0-52.0); HEMOGLOBIN. 9.8 g/dL (14.0-18.0); LYMPHOCYTES % 7.3 % (20.0-50.0); MEAN CORPUSCULAR HEMOGLOBIN 25.9 pg (28.0-32.0); MEAN CORPUSCULAR VOLUME 78.3 fL (80.0-94.0); MEAN PLATELET VOLUME 7.4 fl (7.4-10.4); MONOCYTES % 10.6 % (2.0-8.0); NEUTROPHILS % 78.8 % (40.0-76.0); PLATELET 380 x1000/uL (130-400); RED BLOOD CELL COUNT 3.78 mill/uL (4.7-6.1); RED CELL DISTRIBUTION WIDTH 16.7 % (11.6-14.6)
[2020-01-13 08:00] VITALS: BP 104/46
[2020-01-13] MEDS ORDERED: LIDOCAINE HCL 1% 20ML VIAL (Pyxis) INJ ONE (08:21)
[2020-01-13] MEDS ORDERED: BACITRACIN 15GM TUBE TOP ONE (08:21)
[2020-01-13] MEDS ORDERED: SKIN ADHESIVE 0.7 GM EA TOP ONE (08:21)
[2020-01-13] MEDS ORDERED: PAPAVERINE HCL 30 MG/ML 2ML IV ONE (08:21)
[2020-01-13] MEDS ORDERED: HEPARIN SODIUM 1,000 UNIT/1ML VIAL IV ONE (08:22)
[2020-01-13] MEDS ORDERED: BUPIVACAINE HCL/PF 0.5% (5MG/ML) 10ML ONE (08:22)
[2020-01-13] MEDS ORDERED: THROMBIN (BOVINE) 5000 UNITS/VIAL TOP ONE (08:22)
[2020-01-13] MEDS ORDERED: BACITRACIN 50,000 UNITS/VIAL ONE (08:22)
[2020-01-13] MEDS ORDERED: MEPERIDINE HCL/PF 25MG/ML CPJ IV PRN (09:30)
[2020-01-13] MEDS ORDERED: ONDANSETRON HCL 4MG/2ML INJ IV PRN (09:30)
[2020-01-13] MEDS ORDERED: HYDROMORPHONE HCL/PF 2MG/ML CPJ IV PRN (09:30)
[2020-01-13] MEDS ORDERED: LABETALOL 5MG/ML SYR 20 MG/4 ML SYRINGE IV PRN (09:30)
[2020-01-13 14:15] VITALS: BP 111/65
[2020-01-13] MEDS: MORPHINE SULFATE 4 MG/ML CPJ (NOT FOR IM USE) IV PRN ×2 (15:43→21:13)
[2020-01-13 16:00] VITALS: BP 102/56
[2020-01-13] MEDS ORDERED: INSULIN LISPRO 100 UNITS/ML SUBCUT NR (17:00)
[2020-01-13 20:00] VITALS: BP 118/57
[2020-01-13] MEDS: ATORVASTATIN CALCIUM 40MG TABLET PO SCH (20:22)
[2020-01-13] MEDS: INSULIN GLARGINE UD 100 UNITS/ML SYR SUBCUT SCH (21:12)
[2020-01-13] MEDS ORDERED: INSULIN LISPRO 100 UNITS/ML SUBCUT SCH (22:00)
[2020-01-14] VITALS: BP 111/45
[2020-01-14] MEDS: PIPERACILLIN/TAZOBACTAM 3.375 G in DEXT 5% WATER 100 ML IV SCH ×4 (01:12→20:19)
[2020-01-14] MEDS: MORPHINE SULFATE 4 MG/ML CPJ (NOT FOR IM USE) IV PRN ×3 (02:21→20:20)
[2020-01-14 04:00] VITALS: BP 115/49
[2020-01-14] MEDS: BLOOD SUGAR DIAGNOSTIC STRIP TEST SCH ×4 (06:21→21:12)
[2020-01-14 06:24] LABS: HEMATOCRIT. 27.1 % (42.0-52.0); MEAN CORPUSCULAR HEMOGLOBIN 26.2 pg (28.0-32.0); MEAN CORPUSCULAR VOLUME 78.8 fL (80.0-94.0); MEAN PLATELET VOLUME 7.6 fl (7.4-10.4); PLATELET 366 x1000/uL (130-400); RED BLOOD CELL COUNT 3.44 mill/uL (4.7-6.1); RED CELL DISTRIBUTION WIDTH 16.5 % (11.6-14.6)
[2020-01-14] MEDS: INSULIN LISPRO 100 UNITS/ML SUBCUT SCH ×4 (06:26→21:13)
[2020-01-14 08:00] VITALS: BP 110/63
[2020-01-14 12:00] VITALS: BP 94/45
[2020-01-14] MEDS: SODIUM CHLORIDE 0.9% 1,000 ML IV SCH (14:13)
[2020-01-14 14:24] LABS: PLATELET ESTIMATE NORMAL
[2020-01-14] MEDS: INSULIN GLARGINE UD 100 UNITS/ML SYR SUBCUT SCH ×2 (15:00→21:12)
[2020-01-14 16:00] VITALS: BP 102/54
[2020-01-14 16:00] LABS: CLARITY URINE CLEAR (CLEAR); COLOR URINE YELLOW (YELLOW); KETONES URINE NEGATIVE (NEGATIVE); LEUKOCYTE ESTERASE URINE NEGATIVE (NEGATIVE); NITRITE URINE NEGATIVE (NEGATIVE); OCCULT BLOOD URINE NEGATIVE (NEGATIVE); PH URINE 5.5 (4.5-8.0); PROTEIN URINE TRACE (NEGATIVE); SPECIFIC GRAVITY URINE 1.014 (1.005-1.030); UROBILINOGEN URINE 0.2 E.U./dL (0.2-1.0)
[2020-01-14 17:22] LABS: PHOSPHORUS 2.3 mg/dL (2.5-4.9)
[2020-01-14] MEDS: RIVAROXABAN 20 MG TABLET PO SCH (17:47)
[2020-01-14 18:12] LABS: SODIUM URINE RANDOM 23 mEq/L
[2020-01-14 18:15] LABS: GLUCOSE URINE RANDOM 459 mg/dL
[2020-01-14 20:00] VITALS: BP 102/54
[2020-01-14] MEDS: ATORVASTATIN CALCIUM 40MG TABLET PO SCH (20:19)
[2020-01-15] VITALS: BP 99/57
[2020-01-15] MEDS: PIPERACILLIN/TAZOBACTAM 3.375 G in DEXT 5% WATER 100 ML IV SCH ×2 (01:24→08:11)
[2020-01-15] MEDS: MORPHINE SULFATE 4 MG/ML CPJ (NOT FOR IM USE) IV PRN ×4 (01:27→22:36)
[2020-01-15] MEDS: SODIUM CHLORIDE 0.9% 1,000 ML IV SCH ×2 (01:40→13:40)
[2020-01-15 04:00] VITALS: BP 96/54
[2020-01-15] MEDS: BLOOD SUGAR DIAGNOSTIC STRIP TEST SCH ×4 (06:19→21:05)
[2020-01-15 06:58] LABS: BASOPHILS % 0.8 % (0.0-2.0); EOSINOPHILS % 2.7 % (0.0-5.0); HEMATOCRIT. 26.2 % (42.0-52.0); HEMOGLOBIN. 8.6 g/dL (14.0-18.0); LYMPHOCYTES % 9.8 % (20.0-50.0); MEAN CORPUSCULAR HEMOGLOBIN 26.1 pg (28.0-32.0); MEAN CORPUSCULAR VOLUME 79.7 fL (80.0-94.0); MEAN PLATELET VOLUME 7.3 fl (7.4-10.4); MONOCYTES % 10.3 % (2.0-8.0); NEUTROPHILS % 76.4 % (40.0-76.0); PLATELET 409 x1000/uL (130-400); RED BLOOD CELL COUNT 3.29 mill/uL (4.7-6.1); RED CELL DISTRIBUTION WIDTH 16.7 % (11.6-14.6)
[2020-01-15 07:37] LABS: CHLORIDE 102 mEq/L (98-107)
[2020-01-15 08:00] VITALS: BP 106/68
[2020-01-15] MEDS: INSULIN LISPRO 100 UNITS/ML SUBCUT SCH ×4 (08:12→21:05)
[2020-01-15] MEDS: INSULIN GLARGINE UD 100 UNITS/ML SYR SUBCUT SCH ×2 (10:38→21:04)
[2020-01-15] MEDS ORDERED: VANCOMYCIN 750 MG PREMIX 150 ML IV SCH (11:00)
[2020-01-15 12:00] VITALS: BP 104/59
[2020-01-15] MEDS ORDERED: CEFTRIAXONE 2 G PREMIX 50 ML IV SCH (12:00)
[2020-01-15] MEDS: CEFTRIAXONE 2 G in DEXTROSE 5% WATER 50 ML IV SCH (13:39)
[2020-01-15] MEDS: DAPTOMYCIN 500 MG in SODIUM CHLORIDE 0.9% 50 ML IV SCH (13:48)
[2020-01-15 16:00] VITALS: BP 119/63
[2020-01-15] MEDS: RIVAROXABAN 20 MG TABLET PO SCH (17:08)
[2020-01-15 20:00] VITALS: BP 98/50
[2020-01-15] MEDS: ATORVASTATIN CALCIUM 40MG TABLET PO SCH (20:57)
[2020-01-16] VITALS: BP 92/47
[2020-01-16 04:00] VITALS: BP 93/45
[2020-01-16 04:10] LABS: PROTEIN C FUNCTIONAL 95 % (73-180)
[2020-01-16 06:35] LABS: BASOPHILS % 0.6 % (0.0-2.0); EOSINOPHILS % 2.5 % (0.0-5.0); HEMATOCRIT. 26.3 % (42.0-52.0); HEMOGLOBIN. 8.6 g/dL (14.0-18.0); LYMPHOCYTES % 9.7 % (20.0-50.0); MEAN CORPUSCULAR HEMOGLOBIN 26.2 pg (28.0-32.0); MEAN CORPUSCULAR VOLUME 80.1 fL (80.0-94.0); MEAN PLATELET VOLUME 7.3 fl (7.4-10.4); MONOCYTES % 10.4 % (2.0-8.0); NEUTROPHILS % 76.8 % (40.0-76.0); PLATELET 446 x1000/uL (130-400); RED BLOOD CELL COUNT 3.29 mill/uL (4.7-6.1); RED CELL DISTRIBUTION WIDTH 17.1 % (11.6-14.6)
[2020-01-16] MEDS: BLOOD SUGAR DIAGNOSTIC STRIP TEST SCH ×4 (06:41→21:00)
[2020-01-16] MEDS: SODIUM CHLORIDE 0.9% 1,000 ML IV SCH ×3 (07:10→20:38)
[2020-01-16] MEDS: INSULIN LISPRO 100 UNITS/ML SUBCUT SCH ×4 (07:10→22:11)
[2020-01-16 08:00] VITALS: BP 105/64
[2020-01-16 08:15] LABS: *CREATININE RANDOM URINE 54.3 mg/dL (Not Estab.); MICROALBUMIN RANDOM URINE 22.8 ug/mL (Not Estab.)
[2020-01-16] MEDS: MORPHINE SULFATE 4 MG/ML CPJ (NOT FOR IM USE) IV PRN ×2 (09:05→20:25)
[2020-01-16] MEDS: INSULIN GLARGINE UD 100 UNITS/ML SYR SUBCUT SCH ×2 (10:23→22:06)
[2020-01-16 12:00] VITALS: BP 102/49
[2020-01-16] MEDS: CEFTRIAXONE 2 G in DEXTROSE 5% WATER 50 ML IV SCH (12:45)
[2020-01-16] MEDS: DAPTOMYCIN 500 MG in SODIUM CHLORIDE 0.9% 50 ML IV SCH (13:52)
[2020-01-16 16:00] VITALS: BP 95/61
[2020-01-16] MEDS: RIVAROXABAN 20 MG TABLET PO SCH (17:40)
[2020-01-16 20:15] VITALS: BP 97/60
[2020-01-16] MEDS: ATORVASTATIN CALCIUM 40MG TABLET PO SCH (22:02)
[2020-01-17] VITALS: BP 87/55
[2020-01-17 04:00] VITALS: BP 95/58
[2020-01-17] MEDS: BLOOD SUGAR DIAGNOSTIC STRIP TEST SCH ×4 (06:29→21:37)
[2020-01-17] MEDS: INSULIN LISPRO 100 UNITS/ML SUBCUT SCH ×4 (06:29→22:00)
[2020-01-17 08:00] VITALS: BP 90/53
[2020-01-17] MEDS: INSULIN GLARGINE UD 100 UNITS/ML SYR SUBCUT SCH ×2 (10:42→22:01)
[2020-01-17 11:54] LABS: BASOPHILS % 0.8 % (0.0-2.0); EOSINOPHILS % 0.5 % (0.0-5.0); HEMATOCRIT. 25.3 % (42.0-52.0); HEMOGLOBIN. 8.2 g/dL (14.0-18.0); LYMPHOCYTES % 7.2 % (20.0-50.0); MEAN CORPUSCULAR HEMOGLOBIN 25.9 pg (28.0-32.0); MEAN CORPUSCULAR VOLUME 79.6 fL (80.0-94.0); MEAN PLATELET VOLUME 7.7 fl (7.4-10.4); MONOCYTES % 12.2 % (2.0-8.0); NEUTROPHILS % 79.3 % (40.0-76.0); PLATELET 451 x1000/uL (130-400); RED BLOOD CELL COUNT 3.17 mill/uL (4.7-6.1)
[2020-01-17] MEDS: CEFTRIAXONE 2 G in DEXTROSE 5% WATER 50 ML IV SCH (11:57)
[2020-01-17 12:00] VITALS: BP 90/58
[2020-01-17] MEDS: DAPTOMYCIN 500 MG in SODIUM CHLORIDE 0.9% 50 ML IV SCH (13:37)
[2020-01-17] MEDS: SODIUM CHLORIDE 0.9% 1,000 ML IV SCH (14:27)
[2020-01-17 16:00] VITALS: BP 90/58
[2020-01-17] MEDS: RIVAROXABAN 20 MG TABLET PO SCH (17:06)
[2020-01-17] MEDS: MORPHINE SULFATE 4 MG/ML CPJ (NOT FOR IM USE) IV PRN (17:07)
[2020-01-17 20:00] VITALS: BP 122/98
[2020-01-17] MEDS: ATORVASTATIN CALCIUM 40MG TABLET PO SCH (22:01)
[2020-01-18] VITALS: BP 126/64
[2020-01-18] MEDS: MORPHINE SULFATE 4 MG/ML CPJ (NOT FOR IM USE) IV PRN (00:10)
[2020-01-18] MEDS: SODIUM CHLORIDE 0.9% 1,000 ML IV SCH ×2 (03:30→14:53)
[2020-01-18 04:00] VITALS: BP 97/50
[2020-01-18] MEDS: INSULIN LISPRO 100 UNITS/ML SUBCUT SCH ×4 (06:19→20:57)
[2020-01-18] MEDS: BLOOD SUGAR DIAGNOSTIC STRIP TEST SCH ×4 (06:19→20:57)
[2020-01-18 06:42] LABS: CHLORIDE 101 mEq/L (98-107)
[2020-01-18 06:46] LABS: BASOPHILS % 0.9 % (0.0-2.0); HEMATOCRIT. 25.3 % (42.0-52.0); HEMOGLOBIN. 8.2 g/dL (14.0-18.0); LYMPHOCYTES % 9.6 % (20.0-50.0); MEAN CORPUSCULAR HEMOGLOBIN 25.9 pg (28.0-32.0); MEAN CORPUSCULAR VOLUME 80.3 fL (80.0-94.0); MEAN PLATELET VOLUME 7.5 fl (7.4-10.4); MONOCYTES % 12.7 % (2.0-8.0); NEUTROPHILS % 74.8 % (40.0-76.0); PLATELET 499 x1000/uL (130-400); RED BLOOD CELL COUNT 3.15 mill/uL (4.7-6.1); RED CELL DISTRIBUTION WIDTH 17.7 % (11.6-14.6)
[2020-01-18 06:50] LABS: PHOSPHORUS 3.5 mg/dL (2.5-4.9)
[2020-01-18 08:00] VITALS: BP 106/59
[2020-01-18] MEDS: INSULIN GLARGINE UD 100 UNITS/ML SYR SUBCUT SCH ×2 (11:46→20:57)
[2020-01-18 12:00] VITALS: BP 97/54
[2020-01-18] MEDS: DAPTOMYCIN 500 MG in SODIUM CHLORIDE 0.9% 50 ML IV SCH (13:35)
[2020-01-18] MEDS: CEFTRIAXONE 2 G in DEXTROSE 5% WATER 50 ML IV SCH (13:35)
[2020-01-18 16:00] VITALS: BP 98/62
[2020-01-18] MEDS: HYDROCODONE/ACETAMINOPHEN 5/325MG TABLET PO PRN ×2 (16:41→23:51)
[2020-01-18] MEDS: RIVAROXABAN 20 MG TABLET PO SCH (16:53)
[2020-01-18 20:00] VITALS: BP 101/57
[2020-01-19 04:00] VITALS: BP 98/44
[2020-01-19] MEDS: SODIUM CHLORIDE 0.9% 1,000 ML IV SCH ×2 (05:49→21:21)
[2020-01-19] MEDS: BLOOD SUGAR DIAGNOSTIC STRIP TEST SCH ×4 (06:03→21:17)
[2020-01-19] MEDS: INSULIN LISPRO 100 UNITS/ML SUBCUT SCH ×4 (06:04→21:00)
[2020-01-19 06:48] LABS: BASOPHILS % 0.9 % (0.0-2.0); EOSINOPHILS % 2.2 % (0.0-5.0); HEMATOCRIT. 25.2 % (42.0-52.0); HEMOGLOBIN. 8.2 g/dL (14.0-18.0); LYMPHOCYTES % 12.2 % (20.0-50.0); MEAN CORPUSCULAR HEMOGLOBIN 26.2 pg (28.0-32.0); MEAN PLATELET VOLUME 7.4 fl (7.4-10.4); MONOCYTES % 14.5 % (2.0-8.0); NEUTROPHILS % 70.2 % (40.0-76.0); PLATELET 478 x1000/uL (130-400); RED BLOOD CELL COUNT 3.15 mill/uL (4.7-6.1); RED CELL DISTRIBUTION WIDTH 17.5 % (11.6-14.6)
[2020-01-19 06:56] LABS: CHLORIDE 104 mEq/L (98-107)
[2020-01-19 07:11] LABS: CREATINE KINASE 66 IU/L (39-308)
[2020-01-19 08:00] VITALS: BP 112/63
[2020-01-19] MEDS: HYDROCODONE/ACETAMINOPHEN 5/325MG TABLET PO PRN (08:56)
[2020-01-19] MEDS: INSULIN GLARGINE UD 100 UNITS/ML SYR SUBCUT SCH ×2 (11:30→21:20)
[2020-01-19] MEDS: CEFTRIAXONE 2 G in DEXTROSE 5% WATER 50 ML IV SCH (13:10)
[2020-01-19] MEDS: DAPTOMYCIN 500 MG in SODIUM CHLORIDE 0.9% 50 ML IV SCH (14:22)
[2020-01-19 16:00] VITALS: BP 103/52
[2020-01-19] MEDS: RIVAROXABAN 20 MG TABLET PO SCH (17:15)
[2020-01-19] MEDS: MORPHINE SULFATE 2 MG/ML CPJ (NOT FOR IM USE) IV PRN (17:20)
[2020-01-19 20:00] VITALS: BP 111/75
[2020-01-20] VITALS (40 sets, daily range): BP systolic 92–119; BP diastolic 40–73
[2020-01-20 04:22] LABS: HEMATOCRIT. 26.3 % (42.0-52.0); HEMOGLOBIN. 8.5 g/dL (14.0-18.0); MEAN CORPUSCULAR HEMOGLOBIN 26.1 pg (28.0-32.0); MEAN CORPUSCULAR VOLUME 80.9 fL (80.0-94.0); MEAN PLATELET VOLUME 7.3 fl (7.4-10.4); PLATELET 489 x1000/uL (130-400); RED BLOOD CELL COUNT 3.25 mill/uL (4.7-6.1); RED CELL DISTRIBUTION WIDTH 17.6 % (11.6-14.6)
[2020-01-20] MEDS: BLOOD SUGAR DIAGNOSTIC STRIP TEST SCH ×4 (06:06→21:57)
[2020-01-20] MEDS: INSULIN LISPRO 100 UNITS/ML SUBCUT SCH ×4 (06:06→21:00)
[2020-01-20] MEDS: INSULIN GLARGINE UD 100 UNITS/ML SYR SUBCUT SCH ×2 (10:34→21:59)
[2020-01-20] MEDS: SODIUM CHLORIDE 0.9% 1,000 ML IV SCH (10:35)
[2020-01-20] MEDS: CEFTRIAXONE 2 G in DEXTROSE 5% WATER 50 ML IV SCH (12:04)
[2020-01-20] MEDS ORDERED: MIDAZOLAM HCL 5 MG/5 ML VIAL ONE (12:16)
[2020-01-20] MEDS ORDERED: IODIXANOL 320MG/ML 100 ML BOTTLE IV ONE (12:16)
[2020-01-20] MEDS ORDERED: FENTANYL CITRATE/PF 50MCG/ML 5ML VIAL ONE (12:16)
[2020-01-20] MEDS ORDERED: LIDOCAINE HCL 1% 20ML VIAL (Pyxis) INJ ONE (12:17)
[2020-01-20 12:20] LABS: NUCLEATED RED BLOOD CELLS 1 /100 WBC; PLATELET ESTIMATE INCREASED
[2020-01-20] MEDS ORDERED: ACETAMINOPHEN 325MG TABLET PO PRN ×2 (13:00→14:30)
[2020-01-20] MEDS ORDERED: ATROPINE SULFATE 1MG/10ML SYR IV PRN (13:00)
[2020-01-20 13:15] LABS: CHLORIDE 103 mEq/L (98-107)
[2020-01-20 13:26] LABS: CREATINE KINASE 77 IU/L (39-308)
[2020-01-20 13:28] LABS: CREATINE KINASE MB FRACTION 2.4 ng/mL (0.5-3.6)
[2020-01-20] MEDS: DAPTOMYCIN 500 MG in SODIUM CHLORIDE 0.9% 50 ML IV SCH ×2 (13:30→17:36)
[2020-01-20 13:36] LABS: PHOSPHORUS 3.6 mg/dL (2.5-4.9)
[2020-01-20] MEDS ORDERED: NITROGLYCERIN 0.4MG TABLET SL SL PRN (14:30)
[2020-01-20] MEDS: HYDROCODONE/ACETAMINOPHEN 5/325MG TABLET PO PRN (16:46)
[2020-01-20 17:40] LABS: INR 2.7; PROTHROMBIN TIME 27.1 sec (9.6-11.0)
[2020-01-20 17:43] LABS: CHLORIDE 105 mEq/L (98-107)
[2020-01-21] VITALS (44 sets, daily range): BP systolic 81–119; BP diastolic 38–81
[2020-01-21 06:23] LABS: HEMATOCRIT. 23.7 % (42.0-52.0); HEMOGLOBIN. 7.6 g/dL (14.0-18.0); MEAN CORPUSCULAR HEMOGLOBIN 25.9 pg (28.0-32.0); MEAN CORPUSCULAR VOLUME 80.5 fL (80.0-94.0); MEAN PLATELET VOLUME 7.7 fl (7.4-10.4); PLATELET 305 x1000/uL (130-400); RED BLOOD CELL COUNT 2.95 mill/uL (4.7-6.1); RED CELL DISTRIBUTION WIDTH 18.1 % (11.6-14.6)
[2020-01-21] MEDS: BLOOD SUGAR DIAGNOSTIC STRIP TEST SCH ×4 (06:44→21:00)
[2020-01-21] MEDS: INSULIN LISPRO 100 UNITS/ML SUBCUT SCH ×4 (06:45→21:00)
[2020-01-21] MEDS: DEXTROSE 50% WATER 50ML SYRINGE IV PRN (06:45)
[2020-01-21] MEDS ORDERED: FUROSEMIDE 40MG/4ML VIAL IVP SCH (09:00)
[2020-01-21 12:06] LABS: NUCLEATED RED BLOOD CELLS 2 /100 WBC; PLATELET ESTIMATE NORMAL
[2020-01-21] MEDS: CEFTRIAXONE 2 G in DEXTROSE 5% WATER 50 ML IV SCH (12:26)
[2020-01-21] MEDS ORDERED: MAGNESIUM/ALUMINUM HYDROXIDE/SIMETHICONE 30ML UDC PO PRN (12:45)
[2020-01-21] MEDS: PHYTONADIONE 10MG/ML AMP SUBCUT SCH (14:08)
[2020-01-21] MEDS: LINEZOLID 600 MG PREMIX 300 ML IV SCH (14:09)
[2020-01-21] MEDS: ONDANSETRON HCL 4MG/2ML INJ IV PRN ×2 (14:21→22:33)
[2020-01-21 15:00] LABS: FERRITIN 494 ng/mL (22-322)
[2020-01-21 16:43] LABS: VITAMIN B12 SERUM > 2000.0 pg/mL (211-911)
[2020-01-21] MEDS ORDERED: FUROSEMIDE 40MG/4ML VIAL IVP NR (17:45)
[2020-01-21] MEDS ORDERED: MAGNESIUM 4 G PREMIX 100 ML IV ONE (18:30)
[2020-01-21] MEDS ORDERED: EPOETIN ALFA 10000UNITS/ML VIAL SUBCUT NR (18:30)
[2020-01-21] MEDS: MORPHINE SULFATE 2 MG/ML CPJ (NOT FOR IM USE) IV PRN (18:55)
[2020-01-21] MEDS ORDERED: EPOETIN ALFA-EPBX 10,000 UNIT/ML VIAL SUBCUT NR (20:00)
[2020-01-22] VITALS (36 sets, daily range): BP systolic 92–130; BP diastolic 46–96
[2020-01-22] MEDS: LINEZOLID 600 MG PREMIX 300 ML IV SCH ×2 (03:41→14:50)
[2020-01-22] MEDS: ONDANSETRON HCL 4MG/2ML INJ IV PRN (04:35)
[2020-01-22 05:21] LABS: HEMOGLOBIN. 9.3 g/dL (14.0-18.0); MEAN CORPUSCULAR HEMOGLOBIN 25.4 pg (28.0-32.0); MEAN CORPUSCULAR VOLUME 81.9 fL (80.0-94.0); MEAN PLATELET VOLUME 7.8 fl (7.4-10.4); PLATELET 337 x1000/uL (130-400); RED BLOOD CELL COUNT 3.67 mill/uL (4.7-6.1); RED CELL DISTRIBUTION WIDTH 18.4 % (11.6-14.6)
[2020-01-22] MEDS ORDERED: ALLOPURINOL 300 MG TABLET PO SCH (05:30)
[2020-01-22 05:35] LABS: INR 1.9; PROTHROMBIN TIME 19.8 sec (9.6-11.0)
[2020-01-22 05:41] LABS: PHOSPHORUS 5.2 mg/dL (2.5-4.9)
[2020-01-22 06:01] LABS: HEPATITIS B SURFACE ANTIGEN NEGATIVE
[2020-01-22 06:31] LABS: HEPATITIS A AB IGM NEGATIVE (NEGATIVE)
[2020-01-22] MEDS: BLOOD SUGAR DIAGNOSTIC STRIP TEST SCH ×4 (07:59→21:00)
[2020-01-22 08:07] LABS: NUCLEATED RED BLOOD CELLS 3 /100 WBC; PLATELET ESTIMATE NORMAL
[2020-01-22] MEDS ORDERED: PANTOPRAZOLE SODIUM 40 MG/VIAL IV SCH (09:00)
[2020-01-22] MEDS: PHYTONADIONE 10MG/ML AMP SUBCUT SCH (09:29)
[2020-01-22] MEDS: INSULIN GLARGINE UD 100 UNITS/ML SYR SUBCUT SCH (09:32)
[2020-01-22] MEDS: INSULIN LISPRO 100 UNITS/ML SUBCUT SCH ×4 (09:33→23:07)
[2020-01-22] MEDS: CEFTRIAXONE 2 G in DEXTROSE 5% WATER 50 ML IV SCH (13:43)
[2020-01-22] MEDS ORDERED: FUROSEMIDE 40MG/4ML VIAL IVP SCH (13:45)
[2020-01-22 19:13] LABS: HEMATOCRIT 35.8 % (42.0-52.0); HEMOGLOBIN 11.4 g/dL (14.0-18.0)
[2020-01-22] MEDS ORDERED: EPOETIN ALFA-EPBX 10,000 UNIT/ML VIAL SUBCUT NR (21:00)
[2020-01-22] MEDS ORDERED: EPOETIN ALFA 10000UNITS/ML VIAL SUBCUT NR (21:00)
[2020-01-22] MEDS ORDERED: DOCUSATE SODIUM 100MG CAPSULE PO SCH (21:00)
[2020-01-22] MEDS ORDERED: DIPHENHYDRAMINE 25MG CAPSULE PO PRN (21:00)
[2020-01-22] MEDS ORDERED: CHLORHEXIDINE GLUCONATE 4% EXTERNAL USE TOP SCH (21:00)
[2020-01-22] MEDS ORDERED: ASCORBIC ACID 500 MG TABLET PO SCH (21:00)
[2020-01-22] MEDS: MEROPENEM 1,000 MG in SODIUM CHLORIDE 0.9% 100 ML IV SCH (22:02)
[2020-01-23] VITALS (26 sets, daily range): BP systolic 98–172; BP diastolic 29–72
[2020-01-23 00:01] LABS: HEMATOCRIT 37.6 % (42.0-52.0)
[2020-01-23] MEDS: LINEZOLID 600 MG PREMIX 300 ML IV SCH ×2 (03:00→15:00)
[2020-01-23] MEDS ORDERED: EPINEPHRINE 5 MG in DEXT 5% WATER 245 ML IV ONE (06:00)
[2020-01-23] MEDS ORDERED: NOREPINEPHRINE 8 MG in DEXT 5% WATER 242 ML IV ONE (06:00)
[2020-01-23] MEDS ORDERED: DEL NIDO ELECTROLYTE-S(PH 7.4) 1,000 ML IV ONE ×3 (06:00→17:15)
[2020-01-23] MEDS ORDERED: PAPAVERINE HCL 180MG in SODIUM CHLORIDE 0.9% 24ML IV ONE (06:00)
[2020-01-23] MEDS ORDERED: CEFAZOLIN 2,000 MG in DEXT 5% WATER 100 ML IV ONE (06:00)
[2020-01-23 06:01] LABS: HEMATOCRIT. 34.8 % (42.0-52.0); HEMOGLOBIN. 11.3 g/dL (14.0-18.0); MEAN CORPUSCULAR HEMOGLOBIN 27.1 pg (28.0-32.0); MEAN CORPUSCULAR VOLUME 83.2 fL (80.0-94.0); MEAN PLATELET VOLUME 7.7 fl (7.4-10.4); PLATELET 266 x1000/uL (130-400); RED BLOOD CELL COUNT 4.18 mill/uL (4.7-6.1); RED CELL DISTRIBUTION WIDTH 18.4 % (11.6-14.6)
[2020-01-23 06:05] LABS: CHLORIDE 104 mEq/L (98-107)
[2020-01-23] MEDS ORDERED: FUROSEMIDE 40MG/4ML VIAL IVP SCH (07:00)
[2020-01-23 08:11] LABS: INR 1.5; PARTIAL THROMBOPLASTIN TIME 40.7 sec (23.4-31.0); PROTHROMBIN TIME 15.2 sec (9.6-11.0)
[2020-01-23 08:15] LABS: NUCLEATED RED BLOOD CELLS 3 /100 WBC; PLATELET ESTIMATE NORMAL
[2020-01-23] MEDS: INSULIN LISPRO 100 UNITS/ML SUBCUT SCH ×2 (08:20→13:19)
[2020-01-23] MEDS: BLOOD SUGAR DIAGNOSTIC STRIP TEST SCH ×2 (08:22→13:19)
[2020-01-23] MEDS ORDERED: CHLORHEXIDINE GLUCONATE 4% EXTERNAL USE TOP SCH (09:00)
[2020-01-23] MEDS ORDERED: SODIUM CHLORIDE 0.9% INJ 10ML FLUSH IVF ONE (09:31)
[2020-01-23] MEDS ORDERED: BACITRACIN 15GM TUBE TOP ONE (09:31)
[2020-01-23] MEDS ORDERED: SKIN ADHESIVE 0.7 GM EA TOP ONE (09:31)
[2020-01-23] MEDS ORDERED: SODIUM CHLORIDE 0.9% IRRIG SOL 8,000 ML IR ONE (09:32)
[2020-01-23] MEDS ORDERED: BACITRACIN 50,000 UNITS/VIAL ONE (09:32)
[2020-01-23] MEDS ORDERED: SODIUM CHLORIDE 0.9% ONE (09:32)
[2020-01-23] MEDS ORDERED: THROMBIN (BOVINE) 5000 UNITS/VIAL TOP ONE ×2 (09:32→12:52)
[2020-01-23] MEDS: MEROPENEM 1,000 MG in SODIUM CHLORIDE 0.9% 100 ML IV SCH ×2 (09:45→22:03)
[2020-01-23] MEDS: INSULIN GLARGINE UD 100 UNITS/ML SYR SUBCUT SCH (09:59)
[2020-01-23] MEDS ORDERED: MAGNESIUM 2 G PREMIX 50 ML IV NR (12:00)
[2020-01-23] MEDS ORDERED: DOPAMINE 400MG/250ML PREMIX 250 ML IV ONE (12:33)
[2020-01-23] MEDS ORDERED: HEPARIN 1000 UNITS/ML 10ML ONE ×2 (12:34→15:00)
[2020-01-23] MEDS ORDERED: ACETAMINOPHEN 500MG TABLET ONE (14:01)
[2020-01-23] MEDS ORDERED: PROPOFOL 200MG/20ML VIAL IV ONE (14:20)
[2020-01-23] MEDS ORDERED: ROCURONIUM BROMIDE 10MG/ML VIAL 5ML IV ONE ×2 (14:20→16:06)
[2020-01-23] MEDS ORDERED: DEXAMETHASONE 4MG/ML 1ML VIAL ONE (14:21)
[2020-01-23] MEDS ORDERED: SODIUM BICARBONATE 8.4% 1 MEQ/ML 50ML SYR IV ONE ×3 (15:00→18:19)
[2020-01-23] MEDS ORDERED: HEPARIN 10,000 UNITS/ML VIAL ONE ×2 (15:00→15:57)
[2020-01-23] MEDS ORDERED: FUROSEMIDE 20MG/2ML VIAL ONE (15:00)
[2020-01-23] MEDS ORDERED: PHENYLEPHRINE HCL 10 MG/ML 1ML (IV VIAL) IV ONE (15:00)
[2020-01-23] MEDS ORDERED: MAGNESIUM SULFATE 5GM/10ML VIAL IV ONE (15:00)
[2020-01-23] MEDS ORDERED: AMINOCAPROIC ACID 250 MG/ML 20ML VIAL ONE (15:00)
[2020-01-23] MEDS ORDERED: LIDOCAINE HCL 2% 5ML SYRINGE IV ONE (15:00)
[2020-01-23] MEDS ORDERED: CALCIUM CHLORIDE 1GM/10ML SYR IV ONE ×3 (15:00→17:35)
[2020-01-23] MEDS ORDERED: ALBUMIN HUMAN 25GM/100ML (25%) IV ONE (15:00)
[2020-01-23] MEDS ORDERED: MANNITOL 20% (20GM/100ML) BAG 500ML PREMIX IV ONE (15:00)
[2020-01-23] MEDS ORDERED: FLUMAZENIL 0.1 MG/ML 5ML VIAL IV ONE (15:43)
[2020-01-23] MEDS ORDERED: VASOPRESSIN 20 UNIT/ML 1ML ONE (15:43)
[2020-01-23] MEDS ORDERED: SODIUM BICARBONATE 8.4% MEQ/ML 50ML VIAL IV ONE (16:18)
[2020-01-23] MEDS ORDERED: KCL 10MEQ/50ML PREMIX 200 ML IV PRN (16:45)
[2020-01-23] MEDS ORDERED: KCL 10MEQ/50ML PREMIX 150 ML IV PRN (16:45)
[2020-01-23] MEDS ORDERED: EPINEPHRINE 10 MG in SODIUM CHLORIDE 0.9% 250 ML IV PRN (17:15)
[2020-01-23] MEDS ORDERED: PROTAMINE SULFATE 10MG/ML VIAL 25ML IV ONE (17:25)
[2020-01-23] MEDS ORDERED: MAGNESIUM 2 G PREMIX 50 ML IV ONE (17:27)
[2020-01-23] MEDS ORDERED: ALBUTEROL 90MCG/PUFF 17GM INHALER INH ONE (17:36)
[2020-01-23] MEDS ORDERED: PHENYLEPHRINE 50 MG in DEXTROSE 5% WATER 250 ML IV ONE (19:15)
[2020-01-23] MEDS ORDERED: EPINEPHRINE 0.1MG/ML (1:10,000) 10ML SYR ONE (19:33)
[2020-01-23] MEDS ORDERED: KCL 20MEQ/100ML PREMIX 100 ML IV ONE (19:35)
[2020-01-23] MEDS ORDERED: OXYCODONE HCL/ACETAMINOPHEN 5/325MG TABLET PO PRN (20:00)
[2020-01-23] MEDS ORDERED: MAGNESIUM 1 G PREMIX 100 ML IV PRN (20:00)
[2020-01-23] MEDS ORDERED: MAGNESIUM 2 G PREMIX 50 ML IV PRN (20:00)
[2020-01-23] MEDS ORDERED: DEXT 5% IV SCH (20:00)
[2020-01-23] MEDS ORDERED: WATER IV SCH (20:00)
[2020-01-23] MEDS ORDERED: MAGNESIUM SULFATE 3 GM in DEXT 5% WATER 100 ML IV PRN (20:00)
[2020-01-23] MEDS ORDERED: ALBUMIN HUMAN 12.5G/250ML (5%) IV PRN (20:00)
[2020-01-23] MEDS ORDERED: CALCIUM CHLORIDE 5,000 MG in DEXT 5% WATER 500 ML IV PRN (20:00)
[2020-01-23] MEDS ORDERED: ALBUMIN HUMAN 25GM/100ML (25%) IV PRN (20:00)
[2020-01-23] MEDS ORDERED: CALCIUM CHLORIDE IV SCH (20:00)
[2020-01-23] MEDS ORDERED: ONDANSETRON HCL 4MG/2ML INJ IV PRN (20:00)
[2020-01-23] MEDS ORDERED: ACETAMINOPHEN 325MG TABLET PO PRN (20:00)
[2020-01-23] MEDS: IPRATROPIUM/ALBUTEROL 0.5-3(2.5)MG/3ML NEB HHN SCH (21:08)
[2020-01-23] MEDS: ACETYLCYSTEINE 200MG/ML 20% VIAL 4ML PO SCH (21:09)
[2020-01-23] MEDS ORDERED: FUROSEMIDE 40MG/4ML VIAL IV SCH (21:30)
[2020-01-23 21:48] LABS: HEMATOCRIT. 39.2 % (42.0-52.0); HEMOGLOBIN. 12.2 g/dL (14.0-18.0); MEAN CORPUSCULAR HEMOGLOBIN 26.3 pg (28.0-32.0); MEAN CORPUSCULAR VOLUME 84.3 fL (80.0-94.0); MEAN PLATELET VOLUME 7.7 fl (7.4-10.4); PLATELET 143 x1000/uL (130-400); RED BLOOD CELL COUNT 4.65 mill/uL (4.7-6.1); RED CELL DISTRIBUTION WIDTH 17.4 % (11.6-14.6)
[2020-01-23] MEDS: INSULIN REGULAR (DRIP) 100 UNITS in SODIUM CHLORIDE 0.9% 99 ML IV SCH ×2 (21:57→22:30)
[2020-01-23] MEDS: DOPAMINE 400MG/250ML PREMIX 250 ML IV SCH (21:57)
[2020-01-23 22:08] LABS: BG BASE EXCESS -6.5 mmol/L (-2.0-2.0); BG CARBOXYHEMOGLOBIN 0.2 % (0.5-1.5); BG DEOXYHEMOGLOBIN 1.9 % (0.0-5.0); BG FRACTION INSPIRED OXYGEN 50; BG METHEMOGLOBIN 0.1 % (0.0-1.5); BG OXYGEN SATURATION 98.1 % (92.0-98.5); BG OXYHEMOGLOBIN 97.8 % (94.0-97.0); BG PCO2 33.2 mmHg (35.0-45.0); BG PH 7.353 (7.350-7.450); BG PO2 144.8 mmHg (75.0-100.0); BG SAMPLE SITE ALINE; BG TOTAL HEMOGLOBIN 13.6 g/dL (12.0-18.0); BG VENT MODE VENT - AC
[2020-01-23] MEDS: KCL 10MEQ/50ML PREMIX 100 ML IV PRN (22:17)
[2020-01-23] MEDS ORDERED: ALBUMIN HUMAN 25GM/100ML (25%) IV SCH (22:30)
[2020-01-23] MEDS ORDERED: SODIUM BICARBONATE 8.4% 1 MEQ/ML 50ML SYR IV SCH (22:30)
[2020-01-23] MEDS: AMIODARONE HCL 900 MG in DEXT 5% WATER 482 ML IV PRN (22:31)
[2020-01-23 22:34] LABS: NUCLEATED RED BLOOD CELLS 7 /100 WBC; PLATELET ESTIMATE NORMAL
[2020-01-23] MEDS: SODIUM CHLORIDE 0.9% IV SCH (22:57)
[2020-01-23] MEDS: FUROSEMIDE IV SCH (22:57)
[2020-01-24] VITALS (99 sets, daily range): BP systolic 114–170; BP diastolic 43–100
[2020-01-24] MEDS: IPRATROPIUM/ALBUTEROL 0.5-3(2.5)MG/3ML NEB HHN SCH ×6 (00:02→20:15)
[2020-01-24] MEDS: DEXTROSE 50% WATER 50ML SYRINGE IV PRN ×2 (00:05→20:17)
[2020-01-24] MEDS: EPINEPHRINE 5 MG in DEXT 5% WATER 245 ML IV SCH ×2 (02:24→09:57)
[2020-01-24] MEDS: LINEZOLID 600 MG PREMIX 300 ML IV SCH ×2 (02:25→17:10)
[2020-01-24 03:20] LABS: HEMATOCRIT. 30.9 % (42.0-52.0); HEMOGLOBIN. 9.8 g/dL (14.0-18.0); MEAN CORPUSCULAR HEMOGLOBIN 26.3 pg (28.0-32.0); MEAN CORPUSCULAR VOLUME 83.2 fL (80.0-94.0); MEAN PLATELET VOLUME 7.4 fl (7.4-10.4); PLATELET 110 x1000/uL (130-400); RED BLOOD CELL COUNT 3.72 mill/uL (4.7-6.1); RED CELL DISTRIBUTION WIDTH 17.4 % (11.6-14.6)
[2020-01-24 03:39] LABS: INR 2.3; PARTIAL THROMBOPLASTIN TIME 56.7 sec (23.4-31.0); PROTHROMBIN TIME 23.2 sec (9.6-11.0)
[2020-01-24 05:42] LABS: BG BASE EXCESS 5.4 mmol/L (-2.0-2.0); BG CARBOXYHEMOGLOBIN 0.2 % (0.5-1.5); BG DEOXYHEMOGLOBIN 2.2 % (0.0-5.0); BG FRACTION INSPIRED OXYGEN 40; BG HCO3 ACT 27.6 mmol/L (22.0-26.0); BG METHEMOGLOBIN 0.2 % (0.0-1.5); BG OXYGEN SATURATION 97.8 % (92.0-98.5); BG OXYHEMOGLOBIN 97.4 % (94.0-97.0); BG PCO2 31.8 mmHg (35.0-45.0); BG PH 7.556 (7.350-7.450); BG PO2 105.2 mmHg (75.0-100.0); BG SAMPLE SITE ALINE; BG TOTAL HEMOGLOBIN 10.5 g/dL (12.0-18.0); BG VENT MODE VENT - AC
[2020-01-24] MEDS: ACETYLCYSTEINE 200MG/ML 20% VIAL 4ML PO SCH ×2 (08:11→20:20)
[2020-01-24 08:42] LABS: BG BASE EXCESS 10.7 mmol/L (-2.0-2.0); BG CARBOXYHEMOGLOBIN 0.3 % (0.5-1.5); BG DEOXYHEMOGLOBIN 1.3 % (0.0-5.0); BG HCO3 ACT 34.2 mmol/L (22.0-26.0); BG METHEMOGLOBIN 0.2 % (0.0-1.5); BG OXYGEN SATURATION 98.7 % (92.0-98.5); BG OXYHEMOGLOBIN 98.2 % (94.0-97.0); BG PCO2 40.9 mmHg (35.0-45.0); BG PO2 231.8 mmHg (75.0-100.0); BG SAMPLE SITE ALINE; BG TOTAL HEMOGLOBIN 12.3 g/dL (12.0-18.0); BG VENT MODE VENT - CPAP
[2020-01-24] MEDS: BACITRACIN 15GM TUBE TOP SCH ×2 (09:00→17:12)
[2020-01-24] MEDS ORDERED: MAGNESIUM SULFATE 1G IN DEXT 5% 100ML PREMIX IV ONE (09:00)
[2020-01-24] MEDS ORDERED: POTASSIUM CHLORIDE 10MEQ IN WATER 50ML PREMIX IV ONE (09:00)
[2020-01-24] MEDS: DOCUSATE SODIUM 100MG CAPSULE PO SCH ×2 (09:00→17:10)
[2020-01-24 10:06] LABS: HEMATOCRIT. 35.5 % (42.0-52.0); HEMOGLOBIN. 11.5 g/dL (14.0-18.0); MEAN CORPUSCULAR VOLUME 83.5 fL (80.0-94.0); MEAN PLATELET VOLUME 7.7 fl (7.4-10.4); PLATELET 93 x1000/uL (130-400); RED BLOOD CELL COUNT 4.25 mill/uL (4.7-6.1); RED CELL DISTRIBUTION WIDTH 17.9 % (11.6-14.6)
[2020-01-24 10:08] LABS: PHOSPHORUS 3.7 mg/dL (2.5-4.9)
[2020-01-24 10:25] LABS: NUCLEATED RED BLOOD CELLS 14 /100 WBC
[2020-01-24 10:26] LABS: PLATELET ESTIMATE SLIGHTLY DECREASED
[2020-01-24 10:37] LABS: BG BASE EXCESS 8.4 mmol/L (-2.0-2.0); BG CARBOXYHEMOGLOBIN 0.4 % (0.5-1.5); BG DEOXYHEMOGLOBIN 1.8 % (0.0-5.0); BG FRACTION INSPIRED OXYGEN 40; BG HCO3 ACT 31.8 mmol/L (22.0-26.0); BG METHEMOGLOBIN 0.3 % (0.0-1.5); BG OXYGEN SATURATION 98.2 % (92.0-98.5); BG OXYHEMOGLOBIN 97.5 % (94.0-97.0); BG PCO2 39.5 mmHg (35.0-45.0); BG PH 7.524 (7.350-7.450); BG PO2 127.6 mmHg (75.0-100.0); BG SAMPLE SITE ALINE; BG TOTAL HEMOGLOBIN 12.1 g/dL (12.0-18.0); BG TOTAL RESPIRATORY RATE 17 b/min; BG VENT MODE VENT - CPAP
[2020-01-24] MEDS: MEROPENEM 1,000 MG in SODIUM CHLORIDE 0.9% 100 ML IV SCH ×2 (10:37→23:33)
[2020-01-24] MEDS: ACETAMINOPHEN 650MG/20.3ML UDC PO PRN (11:10)
[2020-01-24] MEDS ORDERED: ALBUMIN HUMAN 25GM/100ML (25%) IV NR (11:30)
[2020-01-24] MEDS ORDERED: METHYLPHENIDATE HCL 5MG TABLET PO SCH (11:30)
[2020-01-24] MEDS ORDERED: BUMETANIDE 1MG/4ML VIAL IV NR (11:30)
[2020-01-24] MEDS: ASPIRIN 81MG EC TABLET PO SCH (12:58)
[2020-01-24] MEDS: MIDODRINE HCL 5MG TABLET PO SCH ×2 (12:59→17:10)
[2020-01-24] MEDS: OXYCODONE HCL/ACETAMINOPHEN 5/325MG TABLET PO PRN (13:00)
[2020-01-24 13:01] LABS: NUCLEATED RED BLOOD CELLS 14 /100 WBC; PLATELET ESTIMATE DECREASED
[2020-01-24] MEDS: DOPAMINE 400MG/250ML PREMIX 250 ML IV SCH (13:03)
[2020-01-24] MEDS ORDERED: HEPARIN 5000 UNITS/ML VIAL SUBCUT NR (16:00)
[2020-01-24] MEDS: SERTRALINE HCL 50MG TABLET PO SCH (17:10)
[2020-01-24] MEDS ORDERED: FUROSEMIDE IV SCH (17:31)
[2020-01-24] MEDS ORDERED: SODIUM CHLORIDE 0.9% IV SCH (17:31)
[2020-01-24] MEDS: SODIUM CHLORIDE 0.9% IV SCH (17:45)
[2020-01-24] MEDS: FUROSEMIDE IV SCH (17:45)
[2020-01-24] MEDS: EPINEPHRINE 10 MG in SODIUM CHLORIDE 0.9% 240 ML IV PRN (18:04)
[2020-01-24 18:48] LABS: HEMATOCRIT. 31.3 % (42.0-52.0); HEMOGLOBIN. 10.1 g/dL (14.0-18.0); MEAN CORPUSCULAR VOLUME 83.6 fL (80.0-94.0); MEAN PLATELET VOLUME 8.5 fl (7.4-10.4); PLATELET 57 x1000/uL (130-400); RED BLOOD CELL COUNT 3.75 mill/uL (4.7-6.1); RED CELL DISTRIBUTION WIDTH 17.8 % (11.6-14.6)
[2020-01-24 19:47] LABS: NUCLEATED RED BLOOD CELLS 9 /100 WBC
[2020-01-24 19:50] LABS: PLATELET ESTIMATE MARKEDLY DECREASED
[2020-01-24] MEDS: AMIODARONE HCL 900 MG in DEXT 5% WATER 482 ML IV PRN (20:20)
[2020-01-24] MEDS: DOXYCYCLINE 100 MG in DEXT 5% WATER 100 ML IV SCH (23:33)
[2020-01-25] VITALS (111 sets, daily range): BP systolic 0–191; BP diastolic 0–153
[2020-01-25] MEDS: IPRATROPIUM/ALBUTEROL 0.5-3(2.5)MG/3ML NEB HHN SCH ×5 (00:12→16:39)
[2020-01-25] MEDS ORDERED: EPINEPHRINE 5 MG in SODIUM CHLORIDE 0.9% 245 ML IV SCH (01:00)
[2020-01-25 06:01] LABS: HEMATOCRIT. 32.7 % (42.0-52.0); HEMOGLOBIN. 10.4 g/dL (14.0-18.0); MEAN CORPUSCULAR HEMOGLOBIN 27.2 pg (28.0-32.0); MEAN PLATELET VOLUME 8.5 fl (7.4-10.4); RED CELL DISTRIBUTION WIDTH 17.8 % (11.6-14.6)
[2020-01-25 06:07] LABS: PLATELET 44 x1000/uL (130-400)
[2020-01-25 06:09] LABS: CHLORIDE 103 mEq/L (98-107)
[2020-01-25 06:26] LABS: PHOSPHORUS 5.6 mg/dL (2.5-4.9)
[2020-01-25] MEDS: OXYCODONE HCL/ACETAMINOPHEN 5/325MG TABLET PO PRN (07:26)
[2020-01-25] MEDS: ACETYLCYSTEINE 200MG/ML 20% VIAL 4ML PO SCH ×2 (08:55→09:12)
[2020-01-25] MEDS: DOCUSATE SODIUM 100MG CAPSULE PO SCH (09:00)
[2020-01-25] MEDS ORDERED: FUROSEMIDE 20MG/2ML VIAL IVP SCH (09:00)
[2020-01-25] MEDS: ASPIRIN 81MG EC TABLET PO SCH (09:04)
[2020-01-25] MEDS: MIDODRINE HCL 5MG TABLET PO SCH ×3 (09:04→17:00)
[2020-01-25] MEDS: SERTRALINE HCL 50MG TABLET PO SCH (09:04)
[2020-01-25] MEDS: DOXYCYCLINE 100 MG in DEXT 5% WATER 100 ML IV SCH ×2 (09:06→22:20)
[2020-01-25] MEDS: BACITRACIN 15GM TUBE TOP SCH (09:12)
[2020-01-25] MEDS: MEROPENEM 1,000 MG in SODIUM CHLORIDE 0.9% 100 ML IV SCH ×2 (09:33→22:21)
[2020-01-25 09:35] LABS: NUCLEATED RED BLOOD CELLS 3 /100 WBC; PLATELET ESTIMATE DECREASED
[2020-01-25] MEDS: DOPAMINE 400MG/250ML PREMIX 250 ML IV SCH ×2 (10:05→19:48)
[2020-01-25] MEDS: ACETAMINOPHEN 650MG/20.3ML UDC PO PRN ×2 (10:47→14:49)
[2020-01-25] MEDS ORDERED: SODIUM CHLORIDE 0.9% 1,000 ML IV SCH (11:45)
[2020-01-25] MEDS: BLOOD SUGAR DIAGNOSTIC STRIP TEST SCH ×2 (12:00→18:00)
[2020-01-25] MEDS: INSULIN LISPRO 100 UNITS/ML SUBCUT SCH ×2 (12:00→18:00)
[2020-01-25] MEDS: EPINEPHRINE 10 MG in SODIUM CHLORIDE 0.9% 240 ML IV PRN ×7 (12:06→23:23)
[2020-01-25] MEDS: ALBUMIN HUMAN 25GM/100ML (25%) IV SCH ×3 (12:13→19:46)
[2020-01-25] MEDS ORDERED: LIDOCAINE HCL 1% 20ML VIAL (Pyxis) INJ ONE (12:44)
[2020-01-25] MEDS ORDERED: SODIUM BICARBONATE 4% (2.4MEQ) 5ML VIAL IV ONE (12:44)
[2020-01-25] MEDS ORDERED: DEXTROSE 50% WATER 50ML SYRINGE IV PRN (12:45)
[2020-01-25] MEDS ORDERED: DOCUSATE SODIUM SUGAR FREE 100MG/10ML UDC NG SCH (17:00)
[2020-01-25 18:01] LABS: HEMATOCRIT. 26.3 % (42.0-52.0); HEMOGLOBIN. 8.1 g/dL (14.0-18.0); MEAN CORPUSCULAR HEMOGLOBIN 27.4 pg (28.0-32.0); MEAN PLATELET VOLUME 8.6 fl (7.4-10.4); RED BLOOD CELL COUNT 2.95 mill/uL (4.7-6.1); RED CELL DISTRIBUTION WIDTH 18.5 % (11.6-14.6)
[2020-01-25 18:03] LABS: PLATELET 10 x1000/uL (130-400)
[2020-01-25 18:34] LABS: NUCLEATED RED BLOOD CELLS 2 /100 WBC; PLATELET ESTIMATE MARKEDLY DECREASED
[2020-01-25] MEDS ORDERED: PHENYLEPHRINE 100 MG in DEXT 5% WATER 250 ML IV PRN (18:45)
[2020-01-25] MEDS ORDERED: NOREPINEPHRINE 8MG/250ML PMX 250ML IV NR (18:45)
[2020-01-25] MEDS ORDERED: DOPAMINE 400MG/250ML PREMIX 250 ML IV ONE (18:55)
[2020-01-25 19:10] LABS: BG BASE EXCESS -3.9 mmol/L (-2.0-2.0); BG DEOXYHEMOGLOBIN 8.6 % (0.0-5.0); BG FRACTION INSPIRED OXYGEN 100; BG HCO3 ACT 24.9 mmol/L (22.0-26.0); BG METHEMOGLOBIN 0.3 % (0.0-1.5); BG OXYGEN SATURATION 91.4 % (92.0-98.5); BG OXYHEMOGLOBIN 91.1 % (94.0-97.0); BG PCO2 68.8 mmHg (35.0-45.0); BG PH 7.176 (7.350-7.450); BG PO2 80.1 mmHg (75.0-100.0); BG SAMPLE SITE ALINE; BG TOTAL HEMOGLOBIN 8.6 g/dL (12.0-18.0); BG VENT MODE RESUS BAG
[2020-01-25 19:43] LABS: BG BASE EXCESS -4.4 mmol/L (-2.0-2.0); BG CARBOXYHEMOGLOBIN 0.3 % (0.5-1.5); BG DEOXYHEMOGLOBIN 7.1 % (0.0-5.0); BG FRACTION INSPIRED OXYGEN 100; BG HCO3 ACT 24.8 mmol/L (22.0-26.0); BG METHEMOGLOBIN 0.1 % (0.0-1.5); BG OXYGEN SATURATION 92.9 % (92.0-98.5); BG OXYHEMOGLOBIN 92.5 % (94.0-97.0); BG PCO2 72.8 mmHg (35.0-45.0); BG PH 7.151 (7.350-7.450); BG SAMPLE SITE ALINE; BG VENT MODE VENT - AC
[2020-01-25] MEDS: NOREPINEPHRINE 32 MG in DEXTROSE 5% WATER 250 ML IV PRN ×2 (19:51→22:28)
[2020-01-25 20:21] LABS: BG BASE EXCESS -5.7 mmol/L (-2.0-2.0); BG FRACTION INSPIRED OXYGEN 100; BG HCO3 ACT 22.8 mmol/L (22.0-26.0); BG METHEMOGLOBIN 0.5 % (0.0-1.5); BG OXYGEN SATURATION 86.9 % (92.0-98.5); BG OXYHEMOGLOBIN 86.5 % (94.0-97.0); BG PCO2 62.4 mmHg (35.0-45.0); BG PO2 68.3 mmHg (75.0-100.0); BG SAMPLE SITE ALINE; BG TOTAL HEMOGLOBIN 8.7 g/dL (12.0-18.0); BG VENT MODE VENT - AC
[2020-01-25] MEDS ORDERED: NOREPINEPHRINE 8 MG in DEXTROSE 5% WATER 250 ML IV PRN (21:00)
[2020-01-25] MEDS ORDERED: NOREPINEPHRINE 32 MG in DEXT 5% WATER 218 ML IV PRN (21:15)
[2020-01-25 23:27] LABS: HEMOGLOBIN. 12.1 g/dL (14.0-18.0); MEAN CORPUSCULAR HEMOGLOBIN 28.8 pg (28.0-32.0); MEAN CORPUSCULAR VOLUME 90.4 fL (80.0-94.0); MEAN PLATELET VOLUME 7.1 fl (7.4-10.4); PLATELET 71 x1000/uL (130-400); RED BLOOD CELL COUNT 4.21 mill/uL (4.7-6.1); RED CELL DISTRIBUTION WIDTH 17.5 % (11.6-14.6)
[2020-01-25 23:28] LABS: BG BASE EXCESS -10.2 mmol/L (-2.0-2.0); BG CARBOXYHEMOGLOBIN 0.6 % (0.5-1.5); BG DEOXYHEMOGLOBIN 12.8 % (0.0-5.0); BG FRACTION INSPIRED OXYGEN 100; BG HCO3 ACT 17.9 mmol/L (22.0-26.0); BG METHEMOGLOBIN 0.3 % (0.0-1.5); BG OXYGEN SATURATION 87.1 % (92.0-98.5); BG OXYHEMOGLOBIN 86.3 % (94.0-97.0); BG PCO2 47.9 mmHg (35.0-45.0); BG PO2 61.1 mmHg (75.0-100.0); BG SAMPLE SITE ALINE; BG TOTAL HEMOGLOBIN 12.8 g/dL (12.0-18.0); BG VENT MODE VENT - AC
[2020-01-26] VITALS (41 sets, daily range): BP systolic 0–166; BP diastolic 0–43
[2020-01-26] MEDS: INSULIN LISPRO 100 UNITS/ML SUBCUT SCH
[2020-01-26] MEDS: IPRATROPIUM/ALBUTEROL 0.5-3(2.5)MG/3ML NEB HHN SCH ×2 (00:10→04:15)
[2020-01-26] MEDS ORDERED: SODIUM BICARBONATE 8.4% 1 MEQ/ML 50ML SYR IV NR ×3 (00:15→05:45)
[2020-01-26] MEDS: BLOOD SUGAR DIAGNOSTIC STRIP TEST SCH ×6 (00:18→06:36)
[2020-01-26] MEDS ORDERED: ALBUMIN HUMAN 12.5GM/50ML (25%) IV NR (00:30)
[2020-01-26] MEDS: MORPHINE SULFATE 2 MG/ML CPJ (NOT FOR IM USE) IV PRN ×2 (00:34→02:21)
[2020-01-26] MEDS ORDERED: INSULIN REGULAR (DRIP) 100 UNITS in SODIUM CHLORIDE 0.9% 99 ML IV ONE ×4 (00:45)
[2020-01-26 00:48] LABS: NUCLEATED RED BLOOD CELLS 36 /100 WBC
[2020-01-26 00:49] LABS: PLATELET ESTIMATE DECREASED
[2020-01-26] MEDS ORDERED: DEXTROSE 50% WATER 50ML SYRINGE IV PRN ×2 (01:00)
[2020-01-26] MEDS ORDERED: INSULIN REGULAR (DRIP) 100 UNITS in SODIUM CHLORIDE 0.9% 99 ML IV SCH (01:00)
[2020-01-26] MEDS ORDERED: INSULIN REGULAR (DRIP) 100 UNITS in SODIUM CHLORIDE 0.9% 100 ML IV SCH (01:00)
[2020-01-26] MEDS: EPINEPHRINE 10 MG in SODIUM CHLORIDE 0.9% 240 ML IV PRN ×6 (01:28→06:47)
[2020-01-26] MEDS: KCL 10MEQ/50ML PREMIX 100 ML IV PRN ×2 (01:37→01:38)
[2020-01-26 03:08] LABS: MEAN CORPUSCULAR HEMOGLOBIN 28.4 pg (28.0-32.0); MEAN CORPUSCULAR VOLUME 91.1 fL (80.0-94.0); MEAN PLATELET VOLUME 7.6 fl (7.4-10.4); RED BLOOD CELL COUNT 2.15 mill/uL (4.7-6.1); RED CELL DISTRIBUTION WIDTH 17.6 % (11.6-14.6)
[2020-01-26 03:24] LABS: HEMATOCRIT. 19.6 % (42.0-52.0); HEMOGLOBIN. 6.1 g/dL (14.0-18.0)
[2020-01-26 03:25] LABS: PLATELET 26 x1000/uL (130-400)
[2020-01-26 04:22] LABS: CHLORIDE 106 mEq/L (98-107)
[2020-01-26] MEDS: NOREPINEPHRINE 32 MG in DEXTROSE 5% WATER 250 ML IV PRN (04:22)
[2020-01-26 04:56] LABS: PHOSPHORUS 8.2 mg/dL (2.5-4.9)
[2020-01-26 05:34] LABS: BG BASE EXCESS -10.4 mmol/L (-2.0-2.0); BG CARBOXYHEMOGLOBIN 0.7 % (0.5-1.5); BG DEOXYHEMOGLOBIN 41.6 % (0.0-5.0); BG FRACTION INSPIRED OXYGEN 100; BG HCO3 ACT 20.4 mmol/L (22.0-26.0); BG METHEMOGLOBIN 0.1 % (0.0-1.5); BG OXYGEN SATURATION 58.1 % (92.0-98.5); BG OXYHEMOGLOBIN 57.6 % (94.0-97.0); BG PCO2 70.5 mmHg (35.0-45.0); BG PO2 37.5 mmHg (75.0-100.0); BG SAMPLE SITE ALINE; BG TOTAL HEMOGLOBIN 12.8 g/dL (12.0-18.0); BG VENT MODE VENT - AC
[2020-01-26] MEDS ORDERED: SODIUM BICARBONATE 150 MEQ in DEXTROSE 5% WATER 1,000 ML IV SCH (06:30)
[2020-01-26] MEDS: DOPAMINE 400MG/250ML PREMIX 250 ML IV SCH (06:32)
[2020-01-26 14:23] LABS: NUCLEATED RED BLOOD CELLS 18 /100 WBC; PLATELET ESTIMATE MARKEDLY DECREASED
== END 2020-01-26 07:21 | disposition expired | DRG 166 ==
LOC: ER 12:31 → EDBEDREQ 14:07 → EDBEDREQTM 14:07 → ENRESERV 15:18 → 5WST 15:57 → CVICU 01-20 13:25
PROVIDERS: ADMIT Internal Medicine; ATTEND Internal Medicine
PROC: 04HK33Z Insertion of Infusion Device into Right Femoral Artery, Percutaneous Approach (ICD-10-PCS; 2020-01-10)
PROC: 04HL33Z Insertion of Infusion Device into Left Femoral Artery, Percutaneous Approach (ICD-10-PCS; 2020-01-10)
PROC: 04HM33Z Insertion of Infusion Device into Right Popliteal Artery, Percutaneous Approach (ICD-10-PCS; 2020-01-10)
PROC: 04CM3ZZ Extirpation of Matter from Right Popliteal Artery, Percutaneous Approach (ICD-10-PCS; 2020-01-10)
PROC: 04CP3ZZ Extirpation of Matter from Right Anterior Tibial Artery, Percutaneous Approach (ICD-10-PCS; 2020-01-10)
PROC: 047M3ZZ Dilation of Right Popliteal Artery, Percutaneous Approach (ICD-10-PCS; 2020-01-10)
PROC: 047P3ZZ Dilation of Right Anterior Tibial Artery, Percutaneous Approach (ICD-10-PCS; 2020-01-10)
PROC: B41F1ZZ Fluoroscopy of Right Lower Extremity Arteries using Low Osmolar Contrast (ICD-10-PCS; 2020-01-10)
PROC: 0Y9M0ZZ Drainage of Right Foot, Open Approach (ICD-10-PCS; 2020-01-12)
PROC: 0JBQ0ZZ Excision of Right Foot Subcutaneous Tissue and Fascia, Open Approach (ICD-10-PCS; 2020-01-12)
PROC: 02HV33Z Insertion of Infusion Device into Superior Vena Cava, Percutaneous Approach (ICD-10-PCS; 2020-01-12)
PROC: B548ZZA Ultrasonography of Superior Vena Cava, Guidance (ICD-10-PCS; 2020-01-12)
PROC: 041 Lower Arteries, Bypass (ICD-10-PCS; 2020-01-13)
PROC: 06BP0ZZ Excision of Right Saphenous Vein, Open Approach (ICD-10-PCS; 2020-01-13)
PROC: 04V Lower Arteries, Restriction (ICD-10-PCS; 2020-01-13)
PROC: B2111ZZ Fluoroscopy of Multiple Coronary Arteries using Low Osmolar Contrast (ICD-10-PCS; 2020-01-20)
PROC: 30233K1 Transfusion of Nonautologous Frozen Plasma into Peripheral Vein, Percutaneous Approach (ICD-10-PCS; 2020-01-22)
PROC: 02100Z9 Bypass Coronary Artery, One Artery from Left Internal Mammary, Open Approach (ICD-10-PCS; principal; 2020-01-23)
PROC: 021309W Bypass Coronary Artery, Four or More Arteries from Aorta with Autologous Venous Tissue, Open Approach (ICD-10-PCS; 2020-01-23)
PROC: 5A02210 Assistance with Cardiac Output using Balloon Pump, Continuous (ICD-10-PCS; 2020-01-23)
PROC: 30233N1 Transfusion of Nonautologous Red Blood Cells into Peripheral Vein, Percutaneous Approach (ICD-10-PCS; 2020-01-23)
PROC: 5A1945Z Respiratory Ventilation, 24-96 Consecutive Hours (ICD-10-PCS; 2020-01-23)
PROC: 5A12012 Performance of Cardiac Output, Single, Manual (ICD-10-PCS; 2020-01-25)
PROC: 06HY33Z Insertion of Infusion Device into Lower Vein, Percutaneous Approach (ICD-10-PCS; 2020-01-25)
PROC: 02HV33Z Insertion of Infusion Device into Superior Vena Cava, Percutaneous Approach (ICD-10-PCS; 2020-01-25)
PROC: 5A1D70Z Performance of Urinary Filtration, Intermittent, Less than 6 Hours Per Day (ICD-10-PCS; 2020-01-25)
PROC: 30233R1 Transfusion of Nonautologous Platelets into Peripheral Vein, Percutaneous Approach (ICD-10-PCS; 2020-01-26)
DX: T82.898A Other specified complication of vascular prosthetic devices, implants and grafts, initial encounter (principal); A41.02 Sepsis due to Methicillin resistant Staphylococcus aureus; N18.2 Chronic kidney disease, stage 2 (mild); N17.9 Acute kidney failure, unspecified; I34.0 Nonrheumatic mitral (valve) insufficiency; I50.20 Unspecified systolic (congestive) heart failure; E43 Unspecified severe protein-calorie malnutrition; E11.69 Type 2 diabetes mellitus with other specified complication; E11.65 Type 2 diabetes mellitus with hyperglycemia; E87.1 Hypo-osmolality and hyponatremia; E78.5 Hyperlipidemia, unspecified; E87.6 Hypokalemia; I21.4 Non-ST elevation (NSTEMI) myocardial infarction; K72.00 Acute and subacute hepatic failure without coma; I70.201 Unspecified atherosclerosis of native arteries of extremities, right leg; I65.21 Occlusion and stenosis of right carotid artery; I25.10 Atherosclerotic heart disease of native coronary artery without angina pectoris; A48.0 Gas gangrene; D64.9 Anemia, unspecified; E11.52 Type 2 diabetes mellitus with diabetic peripheral angiopathy with gangrene; L97.419 Non-pressure chronic ulcer of right heel and midfoot with unspecified severity; E11.42 Type 2 diabetes mellitus with diabetic polyneuropathy; Y83.1 Surgical operation with implant of artificial internal device as the cause of abnormal reaction of the patient, or of later complication, without mention of misadventure at the time of the procedure; D68.9 Coagulation defect, unspecified; M86.8X7 Other osteomyelitis, ankle and foot; L97.519 Non-pressure chronic ulcer of other part of right foot with unspecified severity; L02.611 Cutaneous abscess of right foot; I42.9 Cardiomyopathy, unspecified; E11.40 Type 2 diabetes mellitus with diabetic neuropathy, unspecified; R16.0 Hepatomegaly, not elsewhere classified; E87.0 Hyperosmolality and hypernatremia; E83.41 Hypermagnesemia; D69.6 Thrombocytopenia, unspecified; F64.9 Gender identity disorder, unspecified; Z20.828 Contact with and (suspected) exposure to other viral communicable diseases; I13.0 Hypertensive heart and chronic kidney disease with heart failure and stage 1 through stage 4 chronic kidney disease, or unspecified chronic kidney disease; E11.22 Type 2 diabetes mellitus with diabetic chronic kidney disease; Z79.2 Long term (current) use of antibiotics; Z79.899 Other long term (current) drug therapy; Z89.429 Acquired absence of other toe(s), unspecified side; Y92.89 Other specified places as the place of occurrence of the external cause; Z79.891 Long term (current) use of opiate analgesic; Z68.33 Body mass index [BMI] 33.0-33.9, adult; Z79.4 Long term (current) use of insulin; Z79.01 Long term (current) use of anticoagulants; I25.2 Old myocardial infarction; Z79.82 Long term (current) use of aspirin; Z83.3 Family history of diabetes mellitus; M86.9 Osteomyelitis, unspecified
CPT/HCPCS: 36415; 36600; 37225; 37229; 71045; 73620; 73721; 75635; 75710; 76700; 76770; 76937; 80048; 80053; 80061; 80076; 80202; 81003; 82043; 82247; 82248; 82375; 82550; 82553; 82570; 82607; 82728; 82746; 82805; 82945; 82962; 83036; 83540; 83550; 83735; 83880; 84075; 84100; 84132; 84145; 84156; 84300; 84443; 84450; 84460; 84484; 85014; 85018; 85025; 85044; 85303; 85306; 85347; 85520; 85651; 86141; 86705; 86709; 86803; 86850; 86900; 86920; 86927; 86945; 87070; 87075; 87077; 87186; 87340; 87426; 88108; 88300; 88304; 88305; 88311; 90686; 90732; 93005; 93306; 93454; 93880; 93923; 93970; 94003; 94640; 96365; 99285; C1725; C1729; C1751; C1752; C1758; C1760; C1769; C1884; C1885; C1887; C1893; C1894; C9113; J0282; J0690; J0696; J0878; J0885; J1100; J1200; J1265; J1642; J1644; J1815; J1940; J2020; J2185; J2250; J2270; J2370; J2405; J2440; J2543; J2704; J2720; J3010; J3370; J3430; J3475; J3480; J3490; J7030; J7040; J7050; J7060; J7070; J7608; L3908; P9016; P9017; P9021; P9034; P9047; Q9967